=== PATIENT | female | born 1935 | race Caucasian/White ===

== ENCOUNTER 2021-04-30 10:05 | Inpatient (IN) | payer MEDICARE, SELFPAY ==
[2021-04-30] VITALS (33 sets, daily range): BP systolic 107–145; BP diastolic 81–97; PULSE 81–106; RESP 17–36; TEMP 35.7–37; O2SAT 82–100; BMI 22.6
--- NOTE | ~2021-04-30 | US_ITS ---
EXAMINATION: US thoracentesis DATE: 05/01/2021 13:18 INDICATION: pleural effusion TECHNIQUE: The procedure and its risks, benefits, and alternatives were discussed with January Gutierrez . Potential risks discussed included bleeding, infection, and pneumothorax. She understood the risks and agreed to proceed. The skin was prepped and draped in sterile fashion. 1% lidocaine was used for local anesthesia. Under ultrasound guidance, a 5 Fr catheter with trochar was advanced into the right pleural effusion. Fluid was aspirated. The catheter was removed, and a dressing was applied. There w ere no immediate complications. FINDINGS: Ultrasound images demonstrate a right pleural effusion and the catheter within the fluid. IMPRESSION: 1. Successful ultrasound-guided thoracentesis yielding 1000 mL of yellow fluid. Reviewed, dictated and finalized at location A. INAL INTELLIGENCE ANALYST IMPRESSION: 1. Successful ultrasound-guided thoracentesis yielding 1000 mL of yellow fluid .
--- NOTE | ~2021-04-30 | CT_ITS ---
EXAMINATION: CTA chest PE protocol EXAM DATE: 04/30/2021 18:11 INDICATION: increased need for o2 TECHNIQUE: Spiral CTA of the chest (pulmonary arteries) was performed with 100 cc Omnipaque 350 intr avenous contrast injection. Images were acquired during the pulmonary arterial phase. Coronal maxi mum intensity projection 3D-reconstructions were created by the technologist on dedicated workstation . Axial, coronal and sagittal reformatted images were reviewed. The dose-length product (DLP) for t his examination was 222.96 mGy-cm. The exposure was tailored according to patient size (auto mA exp osure control), and iterative reconstruction (ASIR) was used as additional dose reduction technique. There is no prior study for comparison. FINDINGS: The main, central pulmonary arteries are dilated which can indicate elevated pulmonary suresh rial pressure, pulmonary arterial hypertension. There are no pulmonary emboli in the 1st through 3r d order (central and interlobar) pulmonary arteries. Some loss of attenuation in the basilar segment al pulmonary from respiratory motion, these regions not confidently evaluated. No Intraluminal fillin g defects identified. Thoracic aorta is not yet enhanced. There is cardiomegaly, in particular left ventricular dilation. There is pulmonary vascular congestio n. Moderate-sized to large right, moderate left pleural effusions. There is emphysema with interlobul ar septal thickening, most likely some of which is edema. There is possibility of underlying intersti tial lung disease. IMPRESSION: 1. Limited segmental evaluation, but no pulmonary emboli are suspected. 2. Cardiomegaly. Pulmonary vascular congestion probably pulmonary edema. Pneumonia, chronic intersti tial lung disease not excludable. 3. Moderate to large right, moderate size left pleural effusions. Reviewed, dictated and finalized at location G. E STUD MANAGER IMPRESSION: 1. Limited segmental evaluation, but no pulmonary emboli are suspected. 2. Cardiomegaly. Pulmonary vascular congestion probably pulmonary edema. Pneum onia, chronic interstitial lung disease not excludable. 3. Moderate to large right, moderate size left pleural effusions.
--- NOTE | ~2021-04-30 | XR_ITS ---
EXAMINATION: [id number] DATE: 05/01/2021 13:28 INDICATION: Right pleural effusion status post thoracentesis. TECHNIQUE: A single frontal view of the chest was obtained. COMPARISON: Chest single view 04/30/2021, chest CT 04/30/2021 FINDINGS: There are airspace and interstitial opacities throughout the lungs bilaterally. There are s mall right and moderate-sized left pleural effusions. No pneumothorax. Cardiomegaly is noted. There i s a left chest pacer/defibrillator with leads in right ventricle and coronary sinus. IMPRESSION: 1. Small right and moderate-sized left pleural effusions with improvement on the right status post th oracentesis. 2. Stable diffuse lung disease, consistent with pulmonary edema versus pneumonia. 3. Cardiomegaly. Reviewed, dictated and finalized at location A. R MAKER DYER IMPRESSION: 1. Small right and moderate-sized left pleural effusions with improvement on th e right status post thoracentesis. 2. Stable diffuse lung disease, consistent with pulmonary edema versus pneumoni a. 3. Cardiomegaly.
--- NOTE | ~2021-04-30 | XR_ITS ---
EXAMINATION: XR chest 1V portable INDICATION: Weakness and shortness of breath TECHNIQUE: Portable AP chest at 1050 hours COMPARISON: None available FINDINGS: There are diffuse interstitial and airspace opacities throughout all lung zones, right grea ter than left. Small pleural effusions are suggested. There is no pneumothorax. Cardiomegaly is noted . A triple lead cardiac pacemaker of the left chest wall ends with leads in expected locations. IMPRESSION: 1. Diffuse interstitial and airspace opacities, consistent with pneumonia and/or pulmonary edema. 2. Small pleural effusions. 3. Cardiomegaly. Reviewed, dictated and finalized at location B. PRODUCTION DESIGNER IMPRESSION: 1. Diffuse interstitial and airspace opacities, consistent with pneumonia and/o r pulmonary edema. 2. Small pleural effusions. 3. Cardiomegaly.
--- NOTE | 2021-04-30 10:29 | ECG_ITS ---
Measurements Intervals [place] Rate: 93 P: 72 NC: 116 QRS: -64 QRSD: 190 T: 112 QT: 414 QTc: 515 Interpretive Statements ELECTRONIC VENTRICULAR PACEMAKER FUSION COMPLEX BASELINE ARTIFACT- I, II, III, AVR, AVL NO FURTHER INTERPRETATION IS POSSIBLE ATYPICAL ECG Electronically Signed On 04-30-2021 11:27:33 RECREATIONAL VEHICLE REPAIRER by Francis Tripp D.O.
[2021-04-30 10:59] LABS: Alanine Aminotransferase 25 U/L (4-35); Albumin Level 4.3 g/dL (3.5-5.1); Alkaline Phosphatase 62 U/L (38-126); Anion Gap 8 mmol/L (8-16); Aspartate Amino Transferase 34 U/L (14-36); Bilirubin,Total 0.9 mg/dL (0.2-1.3); Blood Urea Nitrogen 17 mg/dL (7-17); Calcium 9.8 mg/dL (8.4-10.2); Carbon Dioxide 25 mmol/L (22-30); Chloride 100 mmol/L (98-107); Estimated CRCL calculation 35 ml/min; Estimated Glomerular Filt Rate 59; Glucose 196 mg/dL (65-110); Potassium 4.2 mmol/L (3.4-5.0); Sodium 133 mmol/L (137-145)
[2021-04-30 11:01] LABS: Basophils Percent Auto 0.3 % (0.2-1.2); Eosinophils Percent Auto 0.2 % (0-4.4); Hematocrit 41.9 % (37.0-47.0); Hemoglobin 13.9 g/dL (12.0-15.0); Immature Granulocyte Absolute 0.03 K/mm3 (0.00-0.031); Immature Granulocyte Percent A 0.3 % (0-0.5); Lymphocytes Absolute Auto 0.94 K/mm3 (0.9-3.2); Lymphocytes Percent Auto 8.9 % (18.3-44.2); Mean Corpuscular HGB Conc 33.2 g/dl (32-36); Mean Corpuscular Volume 96.3 fl (80-100); Mean Platelet Volume 10.2 fl (7.4-10.4); Monocytes Absolute Auto 0.7 K/mm3 (0.1-0.6); Monocytes Percent Auto 6.2 % (2.6-8.5); Neutrophils Absolute Auto 8.9 K/mm3 (1.3-6.7); Neutrophils Percent Auto 84.1 % (45.5-73.1); Platelet Count Result 238 k/mm3 (150-375); Red Blood Count 4.35 M/mm3 (4.2-5.4); Red Cell Distribution Width 15.1 % (11.5-14.5); White Blood Count 10.5 K/mm3 (4.5-10.0)
--- NOTE | 2021-04-30 11:19 | PC.NURSE ---
Patient assisted to the bathroom. Patient unable to void in the bathroom patient taken back to room and patient voided in her pants in bed.
[2021-04-30 11:26] LABS: INR 1.2; Prothrombin Time 14.7 Seconds (11.1-14.7)
[2021-04-30 11:27] LABS: Lactic Acid Reflex 1.8 mmol/L (0.7-2.1)
[2021-04-30 11:30] LABS: CRP < 0.5 mg/dL (<1.0); Lactate Dehydrogenase 602 U/L (313-618)
--- NOTE | 2021-04-30 11:36 | ED.WEAKNESS ---
HPI - Weakness General Chief complaint: Weakness Stated complaint: weak/sob today Time Seen by Provider: 04/30/21 10:32 Source: patient Mode of arrival: wheelchair Limitations: no limitations History of Present Illness HPI Narrative: This is a 85 year old female that presents to the ER for generalized weakness today. Reports she tested positive for Covid on a home test on the of this month. She has had cough, congestion, chills. Reports today she also started to feel short of breath. Patient reports she saw her primary doctor on the who started her on an antibiotic and an albuterol inhaler. Denies fever, chest pain, or lower extremity edema. Related Data Allergies Allergy/AdvReac Type Severity Reaction Status Date / Time No Known Allergies Allergy Verified 04/30/21 11:04 Review of Systems Review of Systems: CONSTITUTIONAL: Reports chills, sweats. Denies fever ENT: Reports congestion, sore throat CARDIOVASCULAR: Denies chest pain, or edema. RESPIRATORY: Reports cough and dyspnea. All systems reviewed & are unremarkable except as noted in HPI and below PMFSH Past Medical History Medical History (Updated 04/30/21 @ 13:27 by Loly Harris PA-C) History of pacemaker Social History Social History (Updated 04/30/21 @ 11:38 by Loly Harris PA-C) Smoking status: Former smoker Exam Narrative: GENERAL: Well-appearing, well-nourished, and in no acute distress. HEAD: Normocephalic, atraumatic. EYES: EOMI. ENT: Nares clear, no rhinorrhea or epistaxis. Mucous membranes moist. Oropharynx without tonsillar hypertrophy exudate or other lesions. Bilateral TMs pearly jara non-bulging NECK: Supple. No adenopathy or masses. CHEST: No respiratory distress. Rales noted in the mid and lower lung zones bilaterally. No wheezes or rhonchi HEART: Regular rate and rhythm. No murmur heard. Normal peripheral pulses. EXTREMITIES: Normal range of motion. No edema. SKIN: Warm, dry, no rash. NEURO: No focal deficits. Alert and oriented x3. PSYCH: Normal mood and affect Course Consultations Consultation #1: Spoke with hospitalist about patient and workup who accepts admission Date: 04/30/21 Vital Signs Vital signs: Vital Signs Temperature 97.2 F L 04/30/21 10:12 Pulse Rate 106 H 04/30/21 10:12 Respiratory Rate 20 04/30/21 10:12 Blood Pressure 143/82 H 04/30/21 10:12 Pulse Oximetry 82 L 04/30/21 10:12 Temperature 97.2 F L 04/30/21 10:12 Pulse Rate 94 04/30/21 12:45 Respiratory Rate 18 04/30/21 12:45 Blood Pressure 136/86 04/30/21 12:45 Pulse Oximetry 93 04/30/21 12:45 MDM - Weakness MDM Narrative Medical decision making narrative: Patient presents to the ER for weakness. Recently tested positive for COVID on a home test. She is afebrile and nontoxic appearing. Noted to be hypoxic on arrival in the 80s. Placed on 2 L via nasal cannula with relief. CBC with mild leukocytosis to 10.5. Metabolic panel without concerning findings. Lactic acid is not elevated. UA without evidence of infection. Chest x-ray shows diffuse interstitial and airspace opacities consistent with likely Covid pneumonia. Shows small pleural effusions and cardiomegaly. Patient was updated on case findings. Will be admitted for further management of pneumonia with hypoxia. Spoke with hospitalist about patient and workup who accepts admission Patient's COVID PCR today did end up coming back negative. We are going to treat as though COVID pneumonia with hypoxia with typical symptoms and appearance on chest x-ray with home test positive. Remdesivir and Dexamethasone were started Lab Data Attestation: I reviewed the patient's lab results. Result diagrams: 04/30/21 10:37 04/30/21 10:37 Labs: Lab Results 04/30/21 04/30/21 04/30/21 Range/Units 10:37 10:37 10:59 WBC 10.5 H (4.5-10.0) K/mm3 RBC 4.35 (4.2-5.4) M/mm3 Hgb 13.9 (12.0-15.0) g/dL Hct 41.9 (37.0-47.0) % MCV
[2021-04-30 12:39] LABS: Add Urine Microscopic? YES; Appearance Urine Clear (Clear); Bacteria Urine Trace /hpf; Bilirubin Urine Negative (Negative); Blood Urine Negative (Negative); Color Urine Amber (Yellow); Glucose Urine UA Negative (Negative); Ketones Urine Trace mg/dL (Negative); Leukocyte Esterase Ur Negative LEU/UL (Negative); Mucus Urine Rare /lpf; Nitrate Urine Negative (Negative); Protein Urine 1+ mg/dL (Negative); RBC Urine 0-2 /hpf (0-2); Specific Grav Ur 1.023 (1.001-1.035); Squamous Epithelial Cell Urine Occasional /hpf (Few); Urobilinogen Urine Negative mg/dL (<2.0); WBC Urine 0-3 /hpf
[2021-04-30 13:00] LABS: SARS-CoV-2 RNA PCR Negative
--- NOTE | 2021-04-30 13:35 | PC.NURSE ---
Callled lab and spoke to Lori to add on BNP
[2021-04-30 13:55] LABS: NT Pro B Type Natriuretic Pept 8210 pg/mL (5-100)
[2021-04-30] MEDS: REMDESIVIR 200 MG/NS 250 ML 200 MG/250 ML BAG 250 MG IVPB (14:03)
--- NOTE | 2021-04-30 14:08 | PM.IMHP ---
H&P: HPI History of Present Illness Date/Time: 04/30/21 14:08 this is a 85-year-old female patient who came to the emergency room due to generalized weakness. The patient does not wear any oxygen at home. The patient reportedly had a positive COVID test at home with a 26 of this month. She has had a cough congestion and chills. Today she felt short of breath. She saw her primary care doctor on the and was started on antibiotics and an inhaler. At this point she does not have any fever chills or chest pain. Chest x-ray was read as diffuse interstitial and airspace opacities consistent with pneumonia and/or pulmonary edema. Small pleural effusion. Cardiomegaly. The patient was found to be COVID negative here. However she initially started out at 2 L per nasal cannula and soon became hypoxic and was increased up to 6 L per nasal cannula. Medical floor stated that they were going to put her on high-flow. The patient had been started on remdesivir and Decadron. A chest CTA was also performed 1. Limited segmental evaluation, but no pulmonary emboli are suspected. 2. Cardiomegaly. Pulmonary vascular congestion probably pulmonary edema. Pneumonia, chronic interstitial lung disease not excludable. 3. Moderate to large right, moderate size left pleural effusions. The patient is being admitted to inpatient services on the date of service is 04/30/2021. Chief Complaint: Shortness of breath Review of Systems Review of Systems: All systems reviewed & are unremarkable except as noted in HPI and below Constitutional: Constitutional: Reports as per HPI and Reports no additional constitutional complaints Eyes: Eyes: Reports as per HPI and Reports no additional eye complaints ENT: Reports system reviewed and no additional complaints, except as documented and Reports Normal hearing present Cardiovascular: Cardiovascular: Reports no additional cardiovascular complaints Respiratory: Respiratory: Reports no additional respiratory complaints and Reports no additional respiratory complaints Gastrointestinal: Gastrointestinal: Reports as per HPI and Reports no additional gastrointestinal complaints Musculoskeletal: Musculoskeletal: Reports no additional musculoskeletal complaints Integumentary/Breasts: Skin/Breast: Reports system reviewed and no additional complaints, except as docu and Reports as per HPI Neurologic: Reports system reviewed and no additional complaints, except as documented, Reports as per HPI and Reports Normal hearing present Psychiatric: Psychiatric: Reports no additional psychiatric complaints and Reports as per HPI Endocrine: Endocrine: Reports no additional endocrine complaints Hematologic/Lymphatic: Hematologic/Lymphatic: Reports no additional hematologic/lymphatic complaints Allergic/Immunologic: Allergic/Immunologic: Reports no additional allergic/immunologic complaints PMFSH Past Medical History Medical History (Updated 04/30/21 @ 14:10 by Madison Zuñiga NP) History of pacemaker HTN (hypertension), malignant Surgical History Surgical History (Updated 04/30/21 @ 14:10 by Madison Zuñiga NP) H/O: hysterectomy History of cardiac defibrillator placement Family History Family History Other No significant family history Social History Social History (Updated 04/30/21 @ 19:17 by Madison Zuñiga NP) Social History: The patient has 5 children. She is and she was a homemaker. She was a former smoker. No alcohol marijuana or illicit drugs. There is no mention of any durable power patent attorney for healthcare. Code status full code Smoking packs per day: 1 Smoking cigarettes per day: 20.0 Years smoked: 60 Smoking pack-years: 60.00 Smoking status: Former smoker Tobacco type: cigarettes Alcohol intake: never Substance use: never Spiritual care concerns: No Meds Home Medications and Allergies Home Medications
--- NOTE | 2021-04-30 14:50 | PC.NURSE ---
This patient, Barbie Aranda, was admitted to [facility] Surg Room 300-01. Patient/family oriented to hospital policies and general routines including ID bracelet, bed and alarms, visiting hours, pain management, procedures, bathroom and other care routines, personal items, smoking policy, room service/diet, and visiting hours. Report received from Saida DAWN. Information on how to activate the Rapid Response Team has been discussed. Patient/Family are encouraged to report perceived risks to care and to ask questions if they do not understand what they are told or what they should do.
[2021-04-30 17:10] LABS: Alveolar/Arterial O2 Gradient 226.1 mmHg; Base Excess ABG -5.1 mEq/l (+/-2.0); Carboxyhemoglobin 0.6 % THb (0-2.0); Fractional Inspired Oxygen 48 %; HCO3 ABG 20.4 mEq/l (22.0-26.0); Methemoglobin ABG 0.3 %THb (0-1.5); Oxygen Content ABG 18.6 %vol (16.0-22.0); Oxygen Saturation ABG 93.2 % (95.0-100.0); Oxyhemoglobin 91.1 % THb (90.0-100.0); PCO2 ABG 39.9 mmHg (35.0-45.0); PO2 ABG 71.1 mmHg (80.0-100.0); PO2 FiO2 Ratio Arterial Blood 1.48 %; Total Hemoglobin 14.5 g/dL (12.0-18.0); pH ABG 7.327 (7.350-7.450)
[2021-04-30 17:12] LABS: Device HIGH FLOW NASAL CANN; Modified Allen's Test Pass; Site Drawn LEFT RADIAL
[2021-04-30 19:46] LABS: Alveolar/Arterial O2 Gradient 268.2 mmHg; Base Excess ABG -3.6 mEq/l (+/-2.0); Fractional Inspired Oxygen 52 %; HCO3 ABG 22.4 mEq/l (22.0-26.0); Oxygen Content ABG 17.4 %vol (16.0-22.0); PCO2 ABG 43.8 mmHg (35.0-45.0); PO2 ABG 53.5 mmHg (80.0-100.0); PO2 FiO2 Ratio Arterial Blood 1.03 %; Total Hemoglobin 14.8 g/dL (12.0-18.0); pH ABG 7.326 (7.350-7.450)
[2021-04-30 19:48] LABS: Oxygen Saturation ABG 85.3 % (95.0-100.0)
[2021-04-30 19:49] LABS: Device HIGH FLOW NASAL CANN; Modified Allen's Test Unable to perform; Site Drawn RIGHT RADIAL
[2021-04-30] MEDS: FUROSEMIDE INJ 40 MG/4 ML VIAL IV PUSH (20:14)
[2021-04-30 20:58] LABS: Albumin Level 4.4 g/dL (3.5-5.1); Amylase 53 U/L (30-110); Bilirubin,Total 0.7 mg/dL (0.2-1.3); Cholesterol 191 mg/dL (0-200); Glucose 192 mg/dL (65-110); Lactate Dehydrogenase 616 U/L (313-618)
[2021-04-30 22:00] LABS: Digoxin < 0.4 ng/mL (0.8-2.0)
[2021-04-30 22:00] LABS: Alanine Aminotransferase 33 U/L (4-35); Aspartate Amino Transferase 43 U/L (14-36); Estimated CRCL calculation 46 ml/min; Estimated Glomerular Filt Rate > 60
--- NOTE | 2021-04-30 22:05 | PC.NURSE ---
patient transferred from [address] [place] [address]/surg for increased o2 needs at 2150. report was given by rob gallardo. patient placed on airvo.
[2021-04-30 22:21] LABS: Basophils Percent Auto 0.1 % (0.2-1.2); Hematocrit 42.5 % (37.0-47.0); Hemoglobin 14.1 g/dL (12.0-15.0); Immature Granulocyte Absolute 0.06 K/mm3 (0.00-0.031); Immature Granulocyte Percent A 0.4 % (0-0.5); Lymphocytes Absolute Auto 0.59 K/mm3 (0.9-3.2); Mean Corpuscular HGB Conc 33.2 g/dl (32-36); Mean Corpuscular Hemoglobin 32.1 pg (26-34); Mean Corpuscular Volume 96.8 fl (80-100); Mean Platelet Volume 10.7 fl (7.4-10.4); Monocytes Absolute Auto 0.4 K/mm3 (0.1-0.6); Neutrophils Absolute Auto 13.5 K/mm3 (1.3-6.7); Neutrophils Percent Auto 92.5 % (45.5-73.1); Platelet Count Result 236 k/mm3 (150-375); Red Blood Count 4.39 M/mm3 (4.2-5.4); Red Cell Distribution Width 15.2 % (11.5-14.5); White Blood Count 14.6 K/mm3 (4.5-10.0)
[2021-04-30] MEDS: OLANZapine 10 MG INJ VIAL 2.5 MG IM (23:47)
[2021-05-01] VITALS (19 sets, daily range): BP systolic 114–139; BP diastolic 51–82; PULSE 68–103; RESP 14–36; TEMP 36.6–37.2; O2SAT 92–100
--- NOTE | 2021-05-01 | ECHO_ITS ---
Patient Info Name: Barbie Aranda Age: 85 years : 1935 Gender: Female Ht: 69 in Wt: 153 lbs BSA: 1.84 m2 HR: 89 bpm BP: 136 / 82 mmHg Heart Rhythm: Sinus Rhythm Technical Quality: Fair Exam Date: 05/01/2021 10:47 AM Exam Location: [facility] Patient Status: Inpatient Admit Date: 04/30/2021 Staff Ordering Physician: Madison Zuñiga NP Electronics Installer: Mercy Barney RDCS Attending Provider: Cynthia Gillette PA-C Referring Physician: Yogesh HARTMAN; Exam Type: CA echo doppler color flow Study Info Indications - Moderate left pleural effusion Complete two-dimensional, color flow and Doppler transthoracic echocardiogram is performed. Summary 1. Complete two-dimensional, color flow and Doppler transthoracic echocardiogram is performed. 2. Severe left ventricular enlargement with normal wall thickness. Severe global hypokinesis present, EF 20-25% visually, 24% calculated. Diastolic function indeterminate. Abnormal septal motion probably due to pacemaker artifact. Spontaneous contrast is noted. 3. Left atrial chamber dimension is severely enlarged. 4. There is mild aortic valve regurgitation. 5. There is moderate to moderately severe mitral valve regurgitation. 6. There is mild tricuspid valve regurgitation. 7. Moderate pulmonary hypertension, estimated pulmonary arterial systolic pressure is 56 mmHg. 8. Dilated inferior vena cava with <50% collapse upon inspiration consistent with significantly elevated right atrial pressure, 20 mmHg. 9. Left pleural effusion. 10. Pacemaker noted right ventricle. 11. is noted. 12. The rhythm is probably sinus with ventricular pacing. Left Ventricle Left ventricular chamber dimension is severely enlarged. Left ventricular systolic function is severely reduced, estimated at 20-25%. There is no increased left ventricular wall thickness. Left ventricular septal wall motion is normal. The left ventricular diastolic function is indeterminate. Severe left ventricular enlargement with normal wall thickness. Severe global hypokinesis present, EF 20-25% visually, 24% calculated. Diastolic function indeterminate. Abnormal septal motion probably due to pacemaker artifact. Spontaneous contrast is noted. Right Ventricle Right ventricular chamber dimension is normal. Right ventricular systolic function is normal. Left Atria Left atrial chamber dimension is severely enlarged. Right Atria Right atrial chamber dimension is normal. Aortic Valve The aortic valve is trileaflet. There is no aortic valve sclerosis. There is no aortic valve stenosis. There is mild aortic valve regurgitation. Pulmonic Valve The pulmonic valve is normal. There is no pulmonic valve stenosis. There is trace pulmonic regurgitation. Mitral Valve The mitral valve has normal leaflets. There is no mitral valve stenosis. There is moderate to moderately severe mitral valve regurgitation. The mitral valve annulus is severely calcified. Tricuspid Valve The tricuspid valve leaflets are normal. There is no significant tricuspid valve stenosis. There is mild tricuspid valve regurgitation. Moderate pulmonary hypertension, estimated pulmonary arterial systolic pressure is 56 mmHg. Pericardium/Pleural The pericardium appears normal. There is no pericardial effusion. Inferior Vena Cava Dilated inferior vena cava with <50% collapse upon inspiration consistent with significantly elevated right atrial pressure, 20 mmHg. Aorta T
[2021-05-01 06:25] LABS: Basophils Percent Auto 0.1 % (0.2-1.2); Hematocrit 42.7 % (37.0-47.0); Hemoglobin 13.8 g/dL (12.0-15.0); Immature Granulocyte Absolute 0.07 K/mm3 (0.00-0.031); Immature Granulocyte Percent A 0.5 % (0-0.5); Lymphocytes Percent Auto 5.4 % (18.3-44.2); Mean Corpuscular HGB Conc 32.3 g/dl (32-36); Mean Corpuscular Hemoglobin 31.8 pg (26-34); Mean Corpuscular Volume 98.4 fl (80-100); Mean Platelet Volume 10.9 fl (7.4-10.4); Monocytes Percent Auto 6.9 % (2.6-8.5); Neutrophils Absolute Auto 12.8 K/mm3 (1.3-6.7); Neutrophils Percent Auto 87.1 % (45.5-73.1); Platelet Count Result 239 k/mm3 (150-375); Red Blood Count 4.34 M/mm3 (4.2-5.4); Red Cell Distribution Width 15.2 % (11.5-14.5); White Blood Count 14.7 K/mm3 (4.5-10.0)
[2021-05-01 06:37] LABS: Lactic Acid Reflex 3.3 mmol/L (0.7-2.1)
[2021-05-01 06:38] LABS: Alanine Aminotransferase 32 U/L (4-35); Albumin Level 4.3 g/dL (3.5-5.1); Alkaline Phosphatase 60 U/L (38-126); Anion Gap 9 mmol/L (8-16); Aspartate Amino Transferase 41 U/L (14-36); Bilirubin,Total 0.6 mg/dL (0.2-1.3); Blood Urea Nitrogen 22 mg/dL (7-17); Calcium 9.7 mg/dL (8.4-10.2); Carbon Dioxide 28 mmol/L (22-30); Chloride 97 mmol/L (98-107); Estimated CRCL calculation 41 ml/min; Estimated Glomerular Filt Rate 59; Glucose 182 mg/dL (65-110); INR 1.1; Lipase 70 U/L (23-300); Magnesium 2.2 mg/dL (1.6-2.3); Potassium 4.1 mmol/L (3.4-5.0); Sodium 134 mmol/L (137-145)
[2021-05-01 09:22] LABS: Reflex Lactic Acid Yes or No Add Lactic
--- NOTE | 2021-05-01 10:11 | PM.IMPN ---
Progress Note: A&P Assessment and Plan (1) Acute hypoxemic respiratory failure: Code(s): J96.01 - Acute respiratory failure with hypoxia Status: Acute Assessment and Plan: Presented with increased SOB ABG demonstrated hypoxemia O2 sats down to 86% Now requiring up to 50 L/min on Airvo with 15 L nonrebreather Likely secondary to COVID-19 pneumonia, pleural effusion, pulmonary edema. Plan as detailed below. No PE on CTA Evidence of pulmonary congestion. Echo is pending. Continue lasix 40 mg IV BID. Monitor intake and output Discussed case and plan of care with my supervising physician. Recommends consult to pulmonology. Spoke with Dr. Finnegan and discussed plan of care. Agrees with current plan. He will consult if BiPAP becomes required (patient requires 60 L/min at 100% FiO2 and O2 sats <90%). (2) Pneumonia due to COVID-19 virus: Code(s): U07.1 - COVID-19; J12.82 - Pneumonia due to coronavirus disease 2018 Status: Acute Assessment and Plan: Positive test on 04/26/21 although negative PCR here on04/30. CXR showed diffuse lung disease Despite negative PCR test, patient signs/symptoms clinically consistent with that of COVID-19, especially in light of rapidly escalating oxygen requirements. At this time, will continue treating as such and will repeat PCR. Will also check influenza Continue dexamethasone and remdesivir. Monitor LFTs Started on Baricitinib due to increased o2 requirements. Missed dose yesterday due to decreased alertness, not able to take medication. Discussed with pharmacy and due to GFR 59, proceed with 2 mg daily until GFR increases to 60. Also has been started on Ceftriaxone and Azithromycin given leukocytosis. Will proceed at this time. Supportive care. Monitor inflammatory markers. She has completed COVID vaccination including booster. Supplemental O2 as above. Continue Airvo Patient family/POA agreeable to intubation should this become required (3) Pleural effusion: Code(s): J90 - Pleural effusion, not elsewhere classified Status: Acute Assessment and Plan: Patient with moderate to large right, moderate left pleural effusion Patient's daughter reports that 2 weeks ago when patient was feeling well she had a routine CXR that was ?clear? Possibly related to pneumonia vs CHF Diagnostic and therapeutic thoracentesis scheduled for this afternoon. Will await lab studies including pleural protein, LDH, cell count, cultures, cytology (4) HTN (hypertension), malignant: Code(s): I10 - Essential (primary) hypertension Status: Chronic Assessment and Plan: Blood pressure is stable Continue carvedilol Continue IV Lasix b.i.d.. Monitor blood pressures with this (5) Lactic acidosis: Code(s): E87.2 - Acidosis Status: Acute Assessment and Plan: Lactic normal on presentation at 1.8 Repeated this morning, unclear why, and elevated at 3.3 Stat repeat lactic acid is pending Subjective Date/time seen: 05/01/21 10:11 Interval history: Date of service: 05/01/2021 Barbie Aranda is an 85-year-old female with a history of hypertension and cardiac pacemaker with recent positive COVID test on 04/26/2021 who is seen in follow-up for acute respiratory failure. I was called to the patient's room this morning as RN was concerned about patient removing her oxygen tubing and being agitated. On my encounter, the patient was resting comfortably. She is requiring Airvo at 50 L/min. She was asleep but arouses easily to verbal stimuli. She did not respond to any questions aside from telling me her name. I was not able to obtain any further history from the patient. I spoke with the patient's daughter/POA, January, via phone. Explain concerns about the patient removing oxygen. Discussed that her oxygen requirements have increased significantlyA and that she is at high risk for decline. Discussed code status and January reports t
[2021-05-01] MEDS: DIGOXIN TAB 125 MCG TABLET PO (10:37)
[2021-05-01] MEDS: BARICITINIB 2 MG TABLET PO (10:38)
[2021-05-01] MEDS: REMDESIVIR 100 MG/NS 250 ML 100 MG/250 ML BAG 250 MG IVPB (10:38)
[2021-05-01 11:05] LABS: Basophils Percent Auto 0.1 % (0.2-1.2); Hematocrit 40.9 % (37.0-47.0); Hemoglobin 13.9 g/dL (12.0-15.0); Immature Granulocyte Absolute 0.06 K/mm3 (0.00-0.031); Immature Granulocyte Percent A 0.4 % (0-0.5); Lymphocytes Absolute Auto 0.81 K/mm3 (0.9-3.2); Lymphocytes Percent Auto 5.7 % (18.3-44.2); Mean Corpuscular Volume 94.2 fl (80-100); Mean Platelet Volume 10.5 fl (7.4-10.4); Monocytes Absolute Auto 1.2 K/mm3 (0.1-0.6); Monocytes Percent Auto 8.7 % (2.6-8.5); Neutrophils Absolute Auto 12.2 K/mm3 (1.3-6.7); Neutrophils Percent Auto 85.1 % (45.5-73.1); Platelet Count Result 206 k/mm3 (150-375); Red Blood Count 4.34 M/mm3 (4.2-5.4); Red Cell Distribution Width 15.2 % (11.5-14.5); White Blood Count 14.3 K/mm3 (4.5-10.0)
[2021-05-01 11:15] LABS: Alanine Aminotransferase 32 U/L (4-35); Aspartate Amino Transferase 37 U/L (14-36); Estimated CRCL calculation 41 ml/min; Estimated Glomerular Filt Rate 59; Lactic Acid Reflex 1.5 mmol/L (0.7-2.1)
[2021-05-01 11:30] LABS: Albumin Level 4.2 g/dL (3.5-5.1); Lactate Dehydrogenase 576 U/L (313-618)
[2021-05-01] MEDS: FUROSEMIDE INJ 40 MG/4 ML VIAL IV PUSH ×2 (11:35→17:05)
[2021-05-01 12:00] LABS: Total Triiodothyronine (T3) 0.78 NG/ML (0.97-1.69)
[2021-05-01 13:07] LABS: Influenza Control Positive
[2021-05-01 14:26] LABS: Appearance Pleural Fluid Hazy (Clear); Color Pleural Fluid Yellow (Colorless); Pleural fluid source Pleural fluid
[2021-05-01 14:27] LABS: Lymphocytes Pleural Fluid 99 %; Monocytes Pleural Fluid 1 %
[2021-05-01] MEDS: ENOXAPARIN 40 MG/0.4 ML SYRINGE SUB-Q (17:05)
[2021-05-01 19:06] LABS: SARS-CoV-2 RNA PCR Negative
[2021-05-02] VITALS (22 sets, daily range): BP systolic 104–131; BP diastolic 59–76; PULSE 51–96; RESP 18–22; TEMP 36.4–37.1; O2SAT 97–100
[2021-05-02 04:59] LABS: Basophils Percent Auto 0.1 % (0.2-1.2); Hematocrit 37.1 % (37.0-47.0); Hemoglobin 12.8 g/dL (12.0-15.0); Immature Granulocyte Absolute 0.05 K/mm3 (0.00-0.031); Immature Granulocyte Percent A 0.4 % (0-0.5); Lymphocytes Absolute Auto 1.44 K/mm3 (0.9-3.2); Lymphocytes Percent Auto 11.7 % (18.3-44.2); Mean Corpuscular HGB Conc 34.5 g/dl (32-36); Mean Corpuscular Hemoglobin 31.8 pg (26-34); Mean Corpuscular Volume 92.1 fl (80-100); Mean Platelet Volume 10.5 fl (7.4-10.4); Monocytes Absolute Auto 1.5 K/mm3 (0.1-0.6); Monocytes Percent Auto 11.9 % (2.6-8.5); Neutrophils Absolute Auto 9.3 K/mm3 (1.3-6.7); Neutrophils Percent Auto 75.9 % (45.5-73.1); Platelet Count Result 199 k/mm3 (150-375); Red Blood Count 4.03 M/mm3 (4.2-5.4); Red Cell Distribution Width 15.1 % (11.5-14.5); White Blood Count 12.3 K/mm3 (4.5-10.0)
[2021-05-02 05:09] LABS: INR 1.3; Prothrombin Time 15.6 Seconds (11.1-14.7)
[2021-05-02 05:16] LABS: Alanine Aminotransferase 26 U/L (4-35); Albumin Level 3.5 g/dL (3.5-5.1); Alkaline Phosphatase 48 U/L (38-126); Anion Gap 1 mmol/L (8-16); Aspartate Amino Transferase 39 U/L (14-36); Bilirubin,Total 0.4 mg/dL (0.2-1.3); Blood Urea Nitrogen 23 mg/dL (7-17); CRP 1.6 mg/dL (<1.0); Calcium 8.2 mg/dL (8.4-10.2); Carbon Dioxide 36 mmol/L (22-30); Chloride 97 mmol/L (98-107); Estimated CRCL calculation 41 ml/min; Estimated Glomerular Filt Rate 59; Glucose 103 mg/dL (65-110); Lactate Dehydrogenase 513 U/L (313-618); Potassium 3.4 mmol/L (3.4-5.0); Sodium 134 mmol/L (137-145)
[2021-05-02] MEDS: LEVOTHYROXINE SODIUM 50 MCG TABLET PO (05:23)
[2021-05-02] MEDS: ENOXAPARIN 40 MG/0.4 ML SYRINGE SUB-Q (10:15)
[2021-05-02] MEDS: DIGOXIN TAB 125 MCG TABLET PO (10:18)
[2021-05-02] MEDS: FUROSEMIDE INJ 40 MG/4 ML VIAL IV PUSH ×2 (10:19→18:07)
[2021-05-02] MEDS: OSELTAMIVIR PHOSPHATE 30 MG CAPSULE PO ×2 (10:19→22:23)
--- NOTE | 2021-05-02 13:12 | P.PNIM_ITS ---
Progress Note: A&P Assessment and Plan (1) Acute hypoxemic respiratory failure: Code(s): J96.01 - Acute respiratory failure with hypoxia Status: Acute Assessment and Plan: Presented with increased SOB. ABG demonstrated hypoxemia and O2 sats down to 86% on presentation * Improved today on Airvo 35 L/min * Likely multifactorial related to acute CHF exacerbation, influenza, pleural effusion.Plan as detailed below. * No PE on CTA * Discussed case and plan of care with my supervising physician and merchandise supervisor, Dr. Finnegan. Pulmonology to consult if worsening/patient requires BiPAP. (2) Acute exacerbation of CHF (congestive heart failure): Code(s): I50.9 - Heart failure, unspecified Status: Acute Assessment and Plan: CT on presentation showed evidence of pulmonary edema and cardiomegaly. BNP 8000 * Echo reviewed which showed EF 20-25% with indeterminate diastolic function and elevated right atrial pressure * Continue Furosemide 40 mg IV BID * Total diuresis of 5 L and patient is symptomatically improved. * Proceed with cardiology consultation. Recommendations appreciated * Monitor intake and output. (3) Pneumonia: Qualifiers: Laterality: bilateral Lung location: lower lobe of lung Pneumonia type: due to unspecified organism Qualified Code(s): J18.9 - Pneumonia, unspec ified organism Code(s): J18.9 - Pneumonia, unspecified organism Status: Acute Assessment and Plan: CXR and CTA show diffuse opacities consistent with pneumonia. * Secondary to influenza which explains bilateral pneumonia * Continue ceftriaxone and azithromycin for CAP coverage * Discussed case with merchandise supervisor, Dr. Finnegan * Patient had positive home COVID test with negative PCR x2 * At this time will discontinue dexamethasone. Steroids to be avoided when monica ating for influenza. * Also will discontinue Baricitinib due to negative PCR * Continue Remdesivir to complete 5 doses. Patient without evidence of toxicity. LFTs appropriate. No issues with Remdesivr + Oseltamivir. Given her advanced age and increased O2 demand, will compete treatment with Remdesivir. (4) Influenza A: Code(s): J10.1 - Influenza due to other identified influenza virus with other respiratory manifestations Status: Acute Assessment and Plan: Positive influenza A on 05/01/21 * Continue tamiflu 30 mg BID (renal dosing) * Supportive care (5) Pleural effusion: Code(s): J90 - Pleural effusion, not elsewhere classified Status: Acute Assessment and Plan: Patient with moderate to large right, moderate left pleural effusion * Patient's daughter reports that 2 weeks ago when patient was feeling well she had a routine CXR that was ?clear? * Possibly related to pneumonia vs CHF * Underwent thoracentesis on 05/01 which yielded 1 L yellow fluid * Pleural fluid studies pending. Gram stain negative. Preliminary cultures negative. No malignant cells on pathology. Await additional tests (6) HTN (hypertension), malignant: Code(s): I10 - Essential (primary) hypertension Status: Chronic Assessment and Plan: Blood pressure is stable. Softer today with BP 104/59 * Continue carvedilol * Continue IV Lasix b.i.d. if blood pressure tolerates. * Monitor blood pressure trends closely (7) Lactic acidosis: Code(s): E87.2 - Acidosis Status: Acute Assessment and Plan: Lactic normal on presentation at 1.8 but was repeated with increase up to 3.3 * Etiology for this transient increase is unclear
--- NOTE | 2021-05-02 13:12 | PM.IMPN ---
Progress Note: A&P Assessment and Plan (1) Acute hypoxemic respiratory failure: Code(s): J96.01 - Acute respiratory failure with hypoxia Status: Acute Assessment and Plan: Presented with increased SOB. ABG demonstrated hypoxemia and O2 sats down to 86% on presentation Improved today on Airvo 35 L/min Likely multifactorial related to acute CHF exacerbation, influenza, pleural effusion.Plan as detailed below. No PE on CTA Discussed case and plan of care with my supervising physician and school transportation director, Dr. Finnegan. Pulmonology to consult if worsening/patient requires BiPAP. (2) Acute exacerbation of CHF (congestive heart failure): Code(s): I50.9 - Heart failure, unspecified Status: Acute Assessment and Plan: CT on presentation showed evidence of pulmonary edema and cardiomegaly. BNP 8000 Echo reviewed which showed EF 20-25% with indeterminate diastolic function and elevated right atrial pressure Continue Furosemide 40 mg IV BID Total diuresis of 5 L and patient is symptomatically improved. Proceed with cardiology consultation. Recommendations appreciated Monitor intake and output. (3) Pneumonia: Qualifiers: Laterality: bilateral Lung location: lower lobe of lung Pneumonia type: due to unspecified organism Qualified Code(s): J18.9 - Pneumonia, unspecified organism Code(s): J18.9 - Pneumonia, unspecified organism Status: Acute Assessment and Plan: CXR and CTA show diffuse opacities consistent with pneumonia. Secondary to influenza which explains bilateral pneumonia Continue ceftriaxone and azithromycin for CAP coverage Discussed case with school transportation director, Dr. Finnegan Patient had positive home COVID test with negative PCR x2 At this time will discontinue dexamethasone. Steroids to be avoided when treating for influenza. Also will discontinue Baricitinib due to negative PCR Continue Remdesivir to complete 5 doses. Patient without evidence of toxicity. LFTs appropriate. No issues with Remdesivr + Oseltamivir. Given her advanced age and increased O2 demand, will compete treatment with Remdesivir. (4) Influenza A: Code(s): J10.1 - Influenza due to other identified influenza virus with other respiratory manifestations Status: Acute Assessment and Plan: Positive influenza A on 05/01/21 Continue tamiflu 30 mg BID (renal dosing) Supportive care (5) Pleural effusion: Code(s): J90 - Pleural effusion, not elsewhere classified Status: Acute Assessment and Plan: Patient with moderate to large right, moderate left pleural effusion Patient's daughter reports that 2 weeks ago when patient was feeling well she had a routine CXR that was ?clear? Possibly related to pneumonia vs CHF Underwent thoracentesis on 05/01 which yielded 1 L yellow fluid Pleural fluid studies pending. Gram stain negative. Preliminary cultures negative. No malignant cells on pathology. Await additional tests (6) HTN (hypertension), malignant: Code(s): I10 - Essential (primary) hypertension Status: Chronic Assessment and Plan: Blood pressure is stable. Softer today with BP 104/59 Continue carvedilol Continue IV Lasix b.i.d. if blood pressure tolerates. Monitor blood pressure trends closely (7) Lactic acidosis: Code(s): E87.2 - Acidosis Status: Acute Assessment and Plan: Lactic normal on presentation at 1.8 but was repeated with increase up to 3.3 Etiology for this transient increase is unclear Repeat lactic again within normal limits at 1.5 Subjective Date/time seen: 05/02/21 13:12 Interval history: Date of service: 05/01/2021 Babrie Aranda is an 85-year-old female with a history of hypertension and cardiac pacemaker with recent positive COVID test on 04/26/2021 who is seen in follow-up for acute respiratory failure. She is feeling well today. She is sitting up and conversing without di
--- NOTE | 2021-05-02 14:59 | PM.CNCAR ---
Assessment and Plan Assessment and plan (1) Acute exacerbation of CHF (congestive heart failure): Code(s): I50.9 - Heart failure, unspecified <MAME Lopez - Last Filed: 05/02/21 15:48> Status: Acute <MAME Lopez - Last Filed: 05/02/21 15:48> Assessment and Plan: Known history of cardiomyopathy with an ejection fraction 28% with subsequent improvement of EF to 36% after implantation [employer]ANT-D device. Echocardiogram from yesterday revealed EF of 20-25%. Evidence of acute on chronic heart failure exacerbation on presentation with BNP elevated 8210, right pleural effusion. She underwent thoracentesis and is being diuresed with IV furosemide. This is provided improvement in her symptoms. Agree with 40 mg furosemide IV push b.i.d. for now. Will likely be able to transition her to oral diuretic tomorrow or the next day. Monitor kidney function and electrolytes with to BMP. On medical therapy for HFrEF with Coreg and diuretic. Can optimize GDMT with addition of Entresto 03/12 and spironolactone 25 mg daily. Accurate intake and output Daily weights <MAME Lopez - Last Filed: 05/02/21 15:48> (2) Influenza A: Code(s): J10.1 - Influenza due to other identified influenza virus with other respiratory manifestations <MAME Lopez - Last Filed: 05/02/21 15:48> Status: Acute <MAME Lopez - Last Filed: 05/02/21 15:48> Assessment and Plan: Currently requiring supplemental oxygen with high-flow oxygen at 80% FiO2 35 liters/minute. Supportive care. Management per primary service. <MAME Lopez - Last Filed: 05/02/21 15:48> (3) Pleural effusion: Code(s): J90 - Pleural effusion, not elsewhere classified <MAME Lopez - Last Filed: 05/02/21 15:48> Status: Acute <MAME Lopez - Last Filed: 05/02/21 15:48> Assessment and Plan: Significant improvement following thoracentesis yesterday. 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 Payne at [place]. According to most recent device interrogation in December of 2020 patient had some recurrent nonsustained ventricular tachycardia with no shocks delivered. She has a high percentage of BiV pacing. Remains on Coreg CR 40 mg daily. <MAME Lopez - Last Filed: 05/02/21 15:48> Additional Plan Patient seen and examined, chart reviewed, agree with Ashley Hall's assessment and plan. On exam she is a thin older very alert and pleasant female in no distress. Heart is regular with a 1/6 systolic murmur, diminished breath sounds in both bases, no respiratory distress, abdomen soft, no edema. Chest x-ray, labs, EKG and telemetry reviewed. Digoxin level OK. Long history of nonischemic cardiomyopathy followed by Dr. Syed, status post Bi V ICD, history of ventricular tachycardia. Patient recently found to have COVID at the end of March, and had progressive shortness of breath and WEISS, admitted for acute on chronic systolic and diastolic CHF, as well as influenza A. She has been compliant with the medications. She has had thoracentesis and IV diuretics and is feeling much better. She is on treatment for influenza A. Her ejection fraction has fallen a little to 20-25%. I agree with the addition of Entresto and spironolactone. Continue IV Lasix 40 mg IVP BID. I spend 22 minutes evaluating the pt and her chart. <Yomaira Rausch MD - Last Filed: 05/02/21 18:12> History of Present Illness History of Present Illness Consult date/time: 05/02/21 14:59 <SUNITA Lopez
[2021-05-02] MEDS: REMDESIVIR 100 MG/NS 250 ML 100 MG/250 ML BAG 250 MG IVPB (15:35)
[2021-05-02] MEDS: POTASSIUM CHLORIDE 20 MEQ TABLET.ER PO (18:07)
--- NOTE | 2021-05-02 18:50 | PC.NURSE ---
1849-Dr. Malloy called and informed that pt's daughter, January, called RN with medication (quinopril 10mg qd) that pt was taking at home that they forgot to inform staff during admission.
[2021-05-02] MEDS: SACUBITRIL/VALSARTAN 12-13 MG TABLET 1 TAB PO (22:23)
[2021-05-03] VITALS (7 sets, daily range): BP systolic 107–116; BP diastolic 58–80; PULSE 87–97; RESP 16–22; TEMP 36.2–36.6; O2SAT 93–100
[2021-05-03 05:25] LABS: Basophils Percent Auto 0.1 % (0.2-1.2); Eosinophils Percent Auto 0.2 % (0-4.4); Hematocrit 39.9 % (37.0-47.0); Hemoglobin 13.8 g/dL (12.0-15.0); Immature Granulocyte Absolute 0.05 K/mm3 (0.00-0.031); Immature Granulocyte Percent A 0.4 % (0-0.5); Lymphocytes Percent Auto 14.8 % (18.3-44.2); Mean Corpuscular HGB Conc 34.6 g/dl (32-36); Mean Corpuscular Hemoglobin 31.7 pg (26-34); Mean Corpuscular Volume 91.5 fl (80-100); Mean Platelet Volume 10.2 fl (7.4-10.4); Monocytes Absolute Auto 1.4 K/mm3 (0.1-0.6); Monocytes Percent Auto 11.1 % (2.6-8.5); Neutrophils Absolute Auto 9.5 K/mm3 (1.3-6.7); Neutrophils Percent Auto 73.4 % (45.5-73.1); Platelet Count Result 229 k/mm3 (150-375); Red Blood Count 4.36 M/mm3 (4.2-5.4); Red Cell Distribution Width 14.9 % (11.5-14.5); White Blood Count 12.9 K/mm3 (4.5-10.0)
[2021-05-03 05:34] LABS: INR 1.2; Prothrombin Time 15.3 Seconds (11.1-14.7)
[2021-05-03 05:41] LABS: Alanine Aminotransferase 32 U/L (4-35); Anion Gap 0 mmol/L (8-16); Aspartate Amino Transferase 39 U/L (14-36); Blood Urea Nitrogen 25 mg/dL (7-17); Carbon Dioxide 35 mmol/L (22-30); Chloride 99 mmol/L (98-107); Estimated CRCL calculation 46 ml/min; Estimated Glomerular Filt Rate > 60; Glucose 104 mg/dL (65-110); Magnesium 2.1 mg/dL (1.6-2.3); Potassium 3.5 mmol/L (3.4-5.0); Sodium 134 mmol/L (137-145)
[2021-05-03] MEDS: LEVOTHYROXINE SODIUM 50 MCG TABLET PO (06:34)
[2021-05-03] MEDS: POTASSIUM CHLORIDE 20 MEQ TABLET.ER PO ×2 (09:25→17:33)
[2021-05-03] MEDS: FUROSEMIDE INJ 40 MG/4 ML VIAL IV PUSH (09:26)
[2021-05-03] MEDS: DIGOXIN TAB 125 MCG TABLET PO (09:26)
[2021-05-03] MEDS: ENOXAPARIN 40 MG/0.4 ML SYRINGE SUB-Q (09:26)
[2021-05-03] MEDS: SACUBITRIL/VALSARTAN 12-13 MG TABLET 1 TAB PO ×2 (09:27→20:24)
[2021-05-03] MEDS: OSELTAMIVIR PHOSPHATE 30 MG CAPSULE PO ×2 (09:27→20:24)
[2021-05-03] MEDS: SPIRONOLACTONE 25 MG TABLET PO (09:27)
[2021-05-03] MEDS: REMDESIVIR 100 MG/NS 250 ML 100 MG/250 ML BAG 250 MG IVPB (10:25)
--- NOTE | 2021-05-03 10:31 | PM.PNCARD ---
Progress Note: A&P Assessment and Plan (1) Acute exacerbation of CHF (congestive heart failure): Code(s): I50.9 - Heart failure, unspecified Status: Acute Assessment and Plan: Known history of cardiomyopathy with an ejection fraction 28% with subsequent improvement of EF to 36% after implantation [employer]TER-D device. Echocardiogram from yesterday revealed EF of 20-25%. Evidence of acute on chronic heart failure exacerbation on presentation with BNP elevated 8210, right pleural effusion. She underwent thoracentesis and is being diuresed with IV furosemide. This is provided improvement in her symptoms. Will shift to oral furosemide today 40mg p.o. b.i.d. Monitor kidney function and electrolytes with daily BMP. On medical therapy for HFrEF with Coreg, Entresto, spironolactone, furosemide. BP and kidney function stable thus far. Accurate intake and output Daily weights OK to transfer to medical floor today Will need outpatient follow up with her product marketing executive, Dr. Payne Cardiology will sign off, please do not hesitate to contact us if we can be of further assistance in the care of this patient (2) Influenza A: Code(s): J10.1 - Influenza due to other identified influenza virus with other respiratory manifestations Status: Acute Assessment and Plan: Remains on oxygen but her requirements have significantly decreased. Improving in this regard. Supportive care. Management per primary service. 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 Payne at [place]. According to most recent device interrogation in December of 2020 patient had some recurrent nonsustained ventricular tachycardia with no shocks delivered. She has a high percentage of BiV pacing. Remains on Coreg CR 40 mg daily. Subjective Date/time seen: 05/03/21 10:31 Cardiology follow up for CHF Continues to feel better today. Her oxygen requirements are significantly decreased, she is breathing comfortably on 2L per nasal cannula. She does not have any cardiovascular complaints of any kind. Review of Systems Review of Systems: All systems reviewed & are unremarkable except as noted in HPI and below Constitutional: Constitutional: Denies excessive sweating, Denies fatigue and Denies weakness Eyes: Eyes: Denies change in vision ENT: Denies Normal hearing present and Reports nasal congestion Cardiovascular: Cardiovascular: Denies chest pain, Denies diaphoresis, Denies pedal edema, Denies leg edema, Denies lightheadedness, Reports palpitations, Reports dyspnea and Denies dyspnea on exertion Respiratory: Respiratory: Reports cough, Reports dyspnea and Denies dyspnea on exertion Gastrointestinal: Gastrointestinal: Denies constipation and Denies diarrhea Genitourinary: Genitourinary: Denies hematuria, Denies dysuria and Denies urinary hesitancy Musculoskeletal: Musculoskeletal: Denies abnormal gait, Denies arthralgias and Denies joint swelling Integumentary/Breasts: Skin/Breast: Reports dry skin and Denies unusual bruising Neurologic: Denies Normal hearing present, Denies Abnormal speech present, Denies abnormal gait, Denies confusion and Denies weakness Psychiatric: Psychiatric: Denies anxiety, Denies confusion and Denies depression Endocrine: Endocrine: Denies excessive sweating, Denies fatigue, Denies flushing and Reports palpitations Hematologic/Lymphatic: Hematologic/Lymphatic: Denies easy bleeding and Denies easy bruising Allergic/Immunologic: Allergic/Immunologic: Denies GI upset with certain foods Exam Const: General: comfortable and no acute distress; No confusion Kg
--- NOTE | 2021-05-03 14:25 | P.PNIM_ITS ---
Progress Note: A&P Assessment and Plan (1) Acute hypoxemic respiratory failure: Code(s): J96.01 - Acute respiratory failure with hypoxia Status: Acute Assessment and Plan: Presented with increased SOB. ABG demonstrated hypoxemia and O2 sats down to 86% on presentation * Significantly improved. Initially required up to 50 L on Airvo, now on 3 L per nasal cannula * Likely multifactorial related to acute CHF exacerbation, influenza, pleural effusion.Plan as detailed below. * No PE on CTA * Discussed case and plan of care with my supervising physician and surgical training specialist, Dr. Finnegan. Pulmonology to consult if worsening/patient requires BiPAP. (2) Acute exacerbation of CHF (congestive heart failure): Code(s): I50.9 - Heart failure, unspecified Status: Acute Assessment and Plan: CT on presentation showed evidence of pulmonary edema and cardiomegaly. BNP 8000 * Echo reviewed which showed EF 20-25% with indeterminate diastolic function and elevated right atrial pressure * Continue Furosemide 40 mg p.o. BID * She has had symptomatic improvement with diuresis. Over 6 L output * Appreciate cardiology consultation * Started on spironolactone and Entresto * Informed by care coordination patient's concern regarding cost of Entresto. Relayed information to Cardiology. * Monitor intake and output. (3) Pneumonia: Qualifiers: Laterality: bilateral Lung location: lower lobe of lung Pneumonia type: due to unspecified organism Qualified Code(s): J18.9 - Pneumonia, unspecified organism Code(s): J18.9 - Pneumonia, unspecified organism Status: Acute Assessment and Plan: CXR and CTA show diffuse opacities consistent with pneumonia. * Secondary to influenza which explains bilateral pneumonia * Continue ceftriaxone and azithromycin for CAP coverage * Discussed case with surgical training specialist, Dr. Finnegan * Patient had positive home COVID test with negative PCR x2. Dexamethasone and baricitinib discontinued on 05/02/21 * Continue Remdesivir to complete 5 doses. Patient without evidence of toxicity. LFTs appropriate. No issues with Remdesivr + Oseltamivir. Given her advanced age and increased O2 demand, will compete treatment with Remdesivir. (4) Influenza A: Code(s): J10.1 - Influenza due to other identified influenza virus with other respiratory manifestations Status: Acute Assessment and Plan: Positive influenza A on 05/01/21 * Continue tamiflu 30 mg BID (renal dosing) * Supportive care (5) Pleural effusion: Code(s): J90 - Pleural effusion, not elsewhere classified Status: Acute Assessment and Plan: Patient with moderate to large right, moderate left pleural effusion * Patient's daughter reports that 2 weeks ago when patient was feeling well she had a routine CXR that was ?clear? * Possibly related to pneumonia vs CHF * Underwent thoracentesis on 05/01 which yielded 1 L yellow fluid * Pleural fluid studies pending. Gram stain negative. Preliminary cultures negative. No malignant cells on pathology. Await additional tests (6) HTN (hypertension), malignant: Code(s): I10 - Essential (primary) hypertension Status: Chronic Assessment and Plan: Blood pressure is stable. Last BP 116/80 * Continue carvedilol * Continue p.o. Lasix * Monitor blood pressure trends closely (7) Lactic acidosis: Code(s): E87.2 - Acidosis Status: Acute Assessment and Plan: Resolved. Lactic normal on presentation at 1.8 but was repeated with i
--- NOTE | 2021-05-03 14:25 | PM.IMPN ---
Progress Note: A&P Assessment and Plan (1) Acute hypoxemic respiratory failure: Code(s): J96.01 - Acute respiratory failure with hypoxia Status: Acute Assessment and Plan: Presented with increased SOB. ABG demonstrated hypoxemia and O2 sats down to 86% on presentation Significantly improved. Initially required up to 50 L on Airvo, now on 3 L per nasal cannula Likely multifactorial related to acute CHF exacerbation, influenza, pleural effusion.Plan as detailed below. No PE on CTA Discussed case and plan of care with my supervising physician and foreign student adviser, Dr. Finnegan. Pulmonology to consult if worsening/patient requires BiPAP. (2) Acute exacerbation of CHF (congestive heart failure): Code(s): I50.9 - Heart failure, unspecified Status: Acute Assessment and Plan: CT on presentation showed evidence of pulmonary edema and cardiomegaly. BNP 8000 Echo reviewed which showed EF 20-25% with indeterminate diastolic function and elevated right atrial pressure Continue Furosemide 40 mg p.o. BID She has had symptomatic improvement with diuresis. Over 6 L output Appreciate cardiology consultation Started on spironolactone and Entresto Informed by care coordination patient's concern regarding cost of Entresto. Relayed information to Cardiology. Monitor intake and output. (3) Pneumonia: Qualifiers: Laterality: bilateral Lung location: lower lobe of lung Pneumonia type: due to unspecified organism Qualified Code(s): J18.9 - Pneumonia, unspecified organism Code(s): J18.9 - Pneumonia, unspecified organism Status: Acute Assessment and Plan: CXR and CTA show diffuse opacities consistent with pneumonia. Secondary to influenza which explains bilateral pneumonia Continue ceftriaxone and azithromycin for CAP coverage Discussed case with foreign student adviser, Dr. Finnegan Patient had positive home COVID test with negative PCR x2. Dexamethasone and baricitinib discontinued on 05/02/21 Continue Remdesivir to complete 5 doses. Patient without evidence of toxicity. LFTs appropriate. No issues with Remdesivr + Oseltamivir. Given her advanced age and increased O2 demand, will compete treatment with Remdesivir. (4) Influenza A: Code(s): J10.1 - Influenza due to other identified influenza virus with other respiratory manifestations Status: Acute Assessment and Plan: Positive influenza A on 05/01/21 Continue tamiflu 30 mg BID (renal dosing) Supportive care (5) Pleural effusion: Code(s): J90 - Pleural effusion, not elsewhere classified Status: Acute Assessment and Plan: Patient with moderate to large right, moderate left pleural effusion Patient's daughter reports that 2 weeks ago when patient was feeling well she had a routine CXR that was ?clear? Possibly related to pneumonia vs CHF Underwent thoracentesis on 05/01 which yielded 1 L yellow fluid Pleural fluid studies pending. Gram stain negative. Preliminary cultures negative. No malignant cells on pathology. Await additional tests (6) HTN (hypertension), malignant: Code(s): I10 - Essential (primary) hypertension Status: Chronic Assessment and Plan: Blood pressure is stable. Last BP 116/80 Continue carvedilol Continue p.o. Lasix Monitor blood pressure trends closely (7) Lactic acidosis: Code(s): E87.2 - Acidosis Status: Acute Assessment and Plan: Resolved. Lactic normal on presentation at 1.8 but was repeated with increase up to 3.3 Etiology for this transient increase is unclear Repeat lactic again within normal limits at 1.5 Additional Plan Patient is hemodynamically stable and will downgrade to medical floor Subjective Date/time seen: 05/03/21 14:25 Interval history: Date of service: 05/03/2021 Barbie Aranda is an 85-year-old female with a history of hypertension and cardiac pacemaker with recent positive COVID te
[2021-05-03] MEDS: FUROSEMIDE 40 MG TABLET PO (17:33)
--- NOTE | 2021-05-03 17:48 | PC.NURSE ---
This patient, Barbie Aarnda, was transferred to [facility] on 05/03/21 at 1745. Personal belongings sent with patient. Report given to Maria Teresa. Appropriate documentation sent with patient.
--- NOTE | 2021-05-03 18:17 | PC.NURSE ---
This patient, Barbie Aranda, was received from IMU on 05/03/21 at 1740. Report received from LÓPEZ Padilla. Patient/family oriented to unit policies and routines
[2021-05-03 20:52] LABS: Glucose Pleural Fluid 153 mg/dL; LDH Pleural Fluid 75 U/L; Total Protein Pleural Fluid <3.0 g/dL
[2021-05-04] VITALS (7 sets, daily range): BP systolic 80–118; BP diastolic 38–65; PULSE 70–87; RESP 14–16; TEMP 36.2–37.1; O2SAT 97–100
[2021-05-04] MEDS: LEVOTHYROXINE SODIUM 50 MCG TABLET PO (05:38)
[2021-05-04 07:42] LABS: Basophils Percent Auto 0.2 % (0.2-1.2); Eosinophils Absolute Auto 0.2 K/mm3 (0-0.3); Eosinophils Percent Auto 2.1 % (0-4.4); Hematocrit 45.6 % (37.0-47.0); Hemoglobin 14.9 g/dL (12.0-15.0); Immature Granulocyte Absolute 0.04 K/mm3 (0.00-0.031); Immature Granulocyte Percent A 0.4 % (0-0.5); Lymphocytes Absolute Auto 2.63 K/mm3 (0.9-3.2); Lymphocytes Percent Auto 23.8 % (18.3-44.2); Mean Corpuscular HGB Conc 32.7 g/dl (32-36); Mean Corpuscular Hemoglobin 31.5 pg (26-34); Mean Corpuscular Volume 96.4 fl (80-100); Mean Platelet Volume 10.1 fl (7.4-10.4); Monocytes Absolute Auto 1.2 K/mm3 (0.1-0.6); Monocytes Percent Auto 10.7 % (2.6-8.5); Neutrophils Percent Auto 62.8 % (45.5-73.1); Platelet Count Result 241 k/mm3 (150-375); Red Blood Count 4.73 M/mm3 (4.2-5.4); Red Cell Distribution Width 15.3 % (11.5-14.5); White Blood Count 11.1 K/mm3 (4.5-10.0)
[2021-05-04 07:50] LABS: Alanine Aminotransferase 30 U/L (4-35); Albumin Level 3.5 g/dL (3.5-5.1); Alkaline Phosphatase 52 U/L (38-126); Anion Gap 2 mmol/L (8-16); Aspartate Amino Transferase 32 U/L (14-36); Bilirubin,Total 0.5 mg/dL (0.2-1.3); Blood Urea Nitrogen 26 mg/dL (7-17); Calcium 8.4 mg/dL (8.4-10.2); Carbon Dioxide 35 mmol/L (22-30); Chloride 99 mmol/L (98-107); Estimated CRCL calculation 37 ml/min; Estimated Glomerular Filt Rate 53; Glucose 100 mg/dL (65-110); Potassium 4.1 mmol/L (3.4-5.0); Sodium 136 mmol/L (137-145)
[2021-05-04 09:00] LABS: INR 1.3; Prothrombin Time 15.6 Seconds (11.1-14.7)
[2021-05-04] MEDS: OSELTAMIVIR PHOSPHATE 30 MG CAPSULE PO ×2 (09:03→20:38)
[2021-05-04] MEDS: ENOXAPARIN 40 MG/0.4 ML SYRINGE SUB-Q (09:03)
[2021-05-04] MEDS: SACUBITRIL/VALSARTAN 12-13 MG TABLET 1 TAB PO (09:04)
[2021-05-04] MEDS: DIGOXIN TAB 125 MCG TABLET PO (09:04)
[2021-05-04] MEDS: SPIRONOLACTONE 25 MG TABLET PO (09:04)
[2021-05-04] MEDS: POTASSIUM CHLORIDE 20 MEQ TABLET.ER PO ×2 (09:04→16:42)
--- NOTE | 2021-05-04 09:52 | P.PNIM_ITS ---
Progress Note: A&P Assessment and Plan (1) Acute hypoxemic respiratory failure: Code(s): J96.01 - Acute respiratory failure with hypoxia Status: Acute Assessment and Plan: Presented with increased SOB. ABG demonstrated hypoxemia and O2 sats down to 86% on presentation * Significantly improved. Initially required up to 50 L on Airvo, now on 2L per nasal cannula * Likely multifactorial related to acute CHF exacerbation, influenza, pleural effusion.Plan as detailed below. * No PE on CTA * Discussed case and plan of care with my supervising physician and pretzel twisting machine operator, Dr. Finnegan. Pulmonology to consult if worsening/patient requires BiPAP. (2) Acute exacerbation of CHF (congestive heart failure): Code(s): I50.9 - Heart failure, unspecified Status: Acute Assessment and Plan: CT on presentation showed evidence of pulmonary edema and cardiomegaly. BNP 8000 * Echo reviewed which showed EF 20-25% with indeterminate diastolic function and elevated right atrial pressure * Continue Furosemide 40 mg p.o. BID * She has had symptomatic improvement with diuresis. >6 L output * Appreciate cardiology consultation * Started on spironolactone and Entresto. * Monitor intake and output. (3) Pneumonia: Qualifiers: Laterality: bilateral Lung location: lower lobe of lung Pneumonia type: due to unspecified organism Qualified Code(s): J18.9 - Pneumonia, unspecified organism Code(s): J18.9 - Pneumonia, unspecified organism Status: Acute Assessment and Plan: CXR and CTA show diffuse opacities consistent with pneumonia. * Secondary to influenza which explains bilateral pneumonia * Continue ceftriaxone and azithromycin for CAP coverage * Discussed case with pretzel twisting machine operator, Dr. Finnegan * Patient had positive home COVID test with negative PCR x2. Dexamethasone and baricitinib discontinued on 05/02/21 * Remdesivir continued to complete 5 doses. Patient without evidence of toxicity. LFTs appropriate. No issues with Remdesivr + Oseltamivir. Given her advanced age and increased O2 demand, will compete treatment with Remdesivir. Final dose today. (4) Influenza A: Code(s): J10.1 - Influenza due to other identified influenza virus with other respiratory manifestations Status: Acute Assessment and Plan: Positive influenza A on 05/01/21 * Continue tamiflu 30 mg BID (renal dosing) * Supportive care (5) Pleural effusion: Code(s): J90 - Pleural effusion, not elsewhere classified Status: Acute Assessment and Plan: Patient with moderate to large right, moderate left pleural effusion * Patient's daughter reports that 2 weeks ago when patient was feeling well she had a routine CXR that was ?clear? * Underwent thoracentesis on 05/01 which yielded 1 L yellow fluid * Gram stain negative. Preliminary cultures negative. No malignant cells on pathology * Pleural fluid studies consistent with transudative effusion, likely secondary to CHF (6) HTN (hypertension), malignant: Code(s): I10 - Essential (primary) hypertension Status: Chronic Assessment and Plan: Blood pressure is stable. Last BP 107/58 * Continue carvedilol * Continue p.o. Lasix * Monitor blood pressure trends closely (7) Lactic acidosis: Code(s): E87.2 - Acidosis Status: Acute Assessment and Plan: Resolved. Lactic normal on presentation at 1.8 but was repeated with increase up to 3.3 * Etiology for this transient increase is unclear * Repeat lactic again
--- NOTE | 2021-05-04 09:52 | PM.IMPN ---
Progress Note: A&P Assessment and Plan (1) Acute hypoxemic respiratory failure: Code(s): J96.01 - Acute respiratory failure with hypoxia Status: Acute Assessment and Plan: Presented with increased SOB. ABG demonstrated hypoxemia and O2 sats down to 86% on presentation Significantly improved. Initially required up to 50 L on Airvo, now on 2L per nasal cannula Likely multifactorial related to acute CHF exacerbation, influenza, pleural effusion.Plan as detailed below. No PE on CTA Discussed case and plan of care with my supervising physician and wheel buffer, Dr. Finnegan. Pulmonology to consult if worsening/patient requires BiPAP. (2) Acute exacerbation of CHF (congestive heart failure): Code(s): I50.9 - Heart failure, unspecified Status: Acute Assessment and Plan: CT on presentation showed evidence of pulmonary edema and cardiomegaly. BNP 8000 Echo reviewed which showed EF 20-25% with indeterminate diastolic function and elevated right atrial pressure Continue Furosemide 40 mg p.o. BID She has had symptomatic improvement with diuresis. >6 L output Appreciate cardiology consultation Started on spironolactone and Entresto. Monitor intake and output. (3) Pneumonia: Qualifiers: Laterality: bilateral Lung location: lower lobe of lung Pneumonia type: due to unspecified organism Qualified Code(s): J18.9 - Pneumonia, unspecified organism Code(s): J18.9 - Pneumonia, unspecified organism Status: Acute Assessment and Plan: CXR and CTA show diffuse opacities consistent with pneumonia. Secondary to influenza which explains bilateral pneumonia Continue ceftriaxone and azithromycin for CAP coverage Discussed case with wheel buffer, Dr. Finnegan Patient had positive home COVID test with negative PCR x2. Dexamethasone and baricitinib discontinued on 05/02/21 Remdesivir continued to complete 5 doses. Patient without evidence of toxicity. LFTs appropriate. No issues with Remdesivr + Oseltamivir. Given her advanced age and increased O2 demand, will compete treatment with Remdesivir. Final dose today. (4) Influenza A: Code(s): J10.1 - Influenza due to other identified influenza virus with other respiratory manifestations Status: Acute Assessment and Plan: Positive influenza A on 05/01/21 Continue tamiflu 30 mg BID (renal dosing) Supportive care (5) Pleural effusion: Code(s): J90 - Pleural effusion, not elsewhere classified Status: Acute Assessment and Plan: Patient with moderate to large right, moderate left pleural effusion Patient's daughter reports that 2 weeks ago when patient was feeling well she had a routine CXR that was ?clear? Underwent thoracentesis on 05/01 which yielded 1 L yellow fluid Gram stain negative. Preliminary cultures negative. No malignant cells on pathology Pleural fluid studies consistent with transudative effusion, likely secondary to CHF (6) HTN (hypertension), malignant: Code(s): I10 - Essential (primary) hypertension Status: Chronic Assessment and Plan: Blood pressure is stable. Last BP 107/58 Continue carvedilol Continue p.o. Lasix Monitor blood pressure trends closely (7) Lactic acidosis: Code(s): E87.2 - Acidosis Status: Acute Assessment and Plan: Resolved. Lactic normal on presentation at 1.8 but was repeated with increase up to 3.3 Etiology for this transient increase is unclear Repeat lactic again within normal limits at 1.5 Subjective Date/time seen: 05/04/21 09:52 Interval history: Date of service: 05/04/2021 Barbie Aranda is an 85-year-old female with a history of hypertension and cardiac pacemaker who is seen in follow-up for acute respiratory failure. She feels much improved today. She denies shortness of breath. No longer endorsing cough. No abdominal pain, nausea, or vomiting. She had a good breakfast this
--- NOTE | 2021-05-04 10:18 | PCCPR ---
EF 20-25% but not sure if she will be physically able to to rehab
[2021-05-04] MEDS: REMDESIVIR 100 MG/NS 250 ML 100 MG/250 ML BAG 250 MG IVPB (11:06)
[2021-05-04 11:43] LABS: Albumin Pleural Fluid 1.2 g/dL
[2021-05-04] MEDS: FUROSEMIDE 40 MG TABLET PO (14:10)
[2021-05-04] MEDS: SODIUM CHLORIDE 0.9% IV 250 ML 100 ML IV CONT (14:25)
--- NOTE | 2021-05-04 14:38 | PCPTNOTE ---
The patient treatment was not able to be completed this afternoon due to low BP. RN requests to hold PT this afternoon due to BP 80/38 in supine. Will plan to continue treatment per plan of care.
[2021-05-05] VITALS (8 sets, daily range): BP systolic 107–125; BP diastolic 49–93; PULSE 64–110; RESP 16–18; TEMP 36.6–37; O2SAT 93–100
[2021-05-05] MEDS: LEVOTHYROXINE SODIUM 50 MCG TABLET PO (05:48)
[2021-05-05 06:28] LABS: Basophils Percent Auto 0.1 % (0.2-1.2); Eosinophils Absolute Auto 0.2 K/mm3 (0-0.3); Eosinophils Percent Auto 2.5 % (0-4.4); Hematocrit 44.3 % (37.0-47.0); Hemoglobin 14.7 g/dL (12.0-15.0); Immature Granulocyte Absolute 0.04 K/mm3 (0.00-0.031); Immature Granulocyte Percent A 0.4 % (0-0.5); Lymphocytes Absolute Auto 2.25 K/mm3 (0.9-3.2); Lymphocytes Percent Auto 23.3 % (18.3-44.2); Mean Corpuscular HGB Conc 33.2 g/dl (32-36); Mean Corpuscular Hemoglobin 31.8 pg (26-34); Mean Corpuscular Volume 95.9 fl (80-100); Mean Platelet Volume 10.2 fl (7.4-10.4); Monocytes Absolute Auto 1.1 K/mm3 (0.1-0.6); Neutrophils Absolute Auto 6.1 K/mm3 (1.3-6.7); Neutrophils Percent Auto 62.7 % (45.5-73.1); Platelet Count Result 210 k/mm3 (150-375); Red Blood Count 4.62 M/mm3 (4.2-5.4); Red Cell Distribution Width 15.1 % (11.5-14.5); White Blood Count 9.7 K/mm3 (4.5-10.0)
[2021-05-05 06:37] LABS: Alanine Aminotransferase 28 U/L (4-35); Albumin Level 3.5 g/dL (3.5-5.1); Alkaline Phosphatase 52 U/L (38-126); Anion Gap 0 mmol/L (8-16); Aspartate Amino Transferase 31 U/L (14-36); Bilirubin,Total 0.7 mg/dL (0.2-1.3); Blood Urea Nitrogen 27 mg/dL (7-17); Calcium 8.5 mg/dL (8.4-10.2); Carbon Dioxide 32 mmol/L (22-30); Chloride 101 mmol/L (98-107); Estimated CRCL calculation 43 ml/min; Estimated Glomerular Filt Rate > 60; Glucose 97 mg/dL (65-110); Potassium 4.8 mmol/L (3.4-5.0); Sodium 133 mmol/L (137-145)
[2021-05-05] MEDS: OSELTAMIVIR PHOSPHATE 30 MG CAPSULE PO ×2 (08:44→20:20)
[2021-05-05] MEDS: ENOXAPARIN 40 MG/0.4 ML SYRINGE SUB-Q (08:44)
[2021-05-05] MEDS: POTASSIUM CHLORIDE 20 MEQ TABLET.ER PO ×2 (08:44→17:47)
[2021-05-05] MEDS: FUROSEMIDE 40 MG TABLET PO ×2 (08:46→17:47)
[2021-05-05] MEDS: DIGOXIN TAB 125 MCG TABLET PO (08:46)
--- NOTE | 2021-05-05 12:46 | P.PNIM_ITS ---
Progress Note: A&P Assessment and Plan (1) Acute hypoxemic respiratory failure: Code(s): J96.01 - Acute respiratory failure with hypoxia Status: Acute Assessment and Plan: Presented with increased SOB. ABG demonstrated hypoxemia and O2 sats down to 86% on presentation * Significantly improved. Initially required up to 50 L on Airvo, now on 2L per nasal cannula * Likely multifactorial related to acute CHF exacerbation, influenza, pleural effusion.Plan as detailed below. * No PE on CTA * Discussed case and plan of care with my supervising physician and band sawmill operator, Dr. Finnegan. Pulmonology to consult if worsening/patient requires BiPAP. * She will need a home O2 eval prior to discharge (2) Acute exacerbation of CHF (congestive heart failure): Code(s): I50.9 - Heart failure, unspecified Status: Acute Assessment and Plan: CT on presentation showed evidence of pulmonary edema and cardiomegaly. BNP 8000 * Echo reviewed which showed EF 20-25% with indeterminate diastolic function and elevated right atrial pressure * Continue Furosemide 40 mg p.o. BID * She has had symptomatic improvement with diuresis * Appreciate cardiology consultation * Started on spironolactone and Entresto. Entresto discontinued on 05/04/2021 due to hypotension. Spironolactone on hold, will resume for tomorrow and monitor blood pressure trends * Monitor intake and output. (3) Pneumonia: Qualifiers: Laterality: bilateral Lung location: lower lobe of lung Pneumonia type: due to unspecified organism Qualified Code(s): J18.9 - Pneumonia, unspecified organism Code(s): J18.9 - Pneumonia, unspecified organism Status: Acute Assessment and Plan: CXR and CTA show diffuse opacities consistent with pneumonia. * Secondary to influenza which explains bilateral pneumonia * Continue ceftriaxone and azithromycin for CAP coverage * Discussed case with band sawmill operator, Dr. Finnegan * Patient had positive home COVID test with negative PCR x2. Dexamethasone and baricitinib discontinued on 05/02/21 * Completed 5 doses of Remdesivir on 05/04/21. No evidence of toxicity. No issues with Remdesivr + Oseltamivir. Given her advanced age and increased O2 demand, felt prudent to complete Remdesivir therapy following pulmonology recommendations. (4) Influenza A: Code(s): J10.1 - Influenza due to other identified influenza virus with other respiratory manifestations Status: Acute Assessment and Plan: Positive influenza A on 05/01/21 * Continue tamiflu 30 mg BID (renal dosing) * Supportive care (5) Pleural effusion: Code(s): J90 - Pleural effusion, not elsewhere classified Status: Acute Assessment and Plan: Patient with moderate to large right, moderate left pleural effusion * Patient's daughter reports that 2 weeks ago when patient was feeling well she had a routine CXR that was ?clear? * Underwent thoracentesis on 05/01 which yielded 1 L yellow fluid * Gram stain negative. Preliminary cultures negative. No malignant cells on pathology * Pleural fluid studies consistent with transudative effusion, likely secondary to CHF (6) HTN (hypertension), malignant: Code(s): I10 - Essential (primary) hypertension Status: Chronic Assessment and Plan: Blood pressure is stable today. Last BP 107/49 * Continue carvedilol * Continue p.o. Lasix * Monitor blood pressure trends closely * Patient with hypotension on 05/04/21 with BP down to 80/40. Discussed with Cardiology, felt to be most likely due
--- NOTE | 2021-05-05 12:46 | PM.IMPN ---
Progress Note: A&P Assessment and Plan (1) Acute hypoxemic respiratory failure: Code(s): J96.01 - Acute respiratory failure with hypoxia Status: Acute Assessment and Plan: Presented with increased SOB. ABG demonstrated hypoxemia and O2 sats down to 86% on presentation Significantly improved. Initially required up to 50 L on Airvo, now on 2L per nasal cannula Likely multifactorial related to acute CHF exacerbation, influenza, pleural effusion.Plan as detailed below. No PE on CTA Discussed case and plan of care with my supervising physician and bulk driver, Dr. Finnegan. Pulmonology to consult if worsening/patient requires BiPAP. She will need a home O2 eval prior to discharge (2) Acute exacerbation of CHF (congestive heart failure): Code(s): I50.9 - Heart failure, unspecified Status: Acute Assessment and Plan: CT on presentation showed evidence of pulmonary edema and cardiomegaly. BNP 8000 Echo reviewed which showed EF 20-25% with indeterminate diastolic function and elevated right atrial pressure Continue Furosemide 40 mg p.o. BID She has had symptomatic improvement with diuresis Appreciate cardiology consultation Started on spironolactone and Entresto. Entresto discontinued on 05/04/2021 due to hypotension. Spironolactone on hold, will resume for tomorrow and monitor blood pressure trends Monitor intake and output. (3) Pneumonia: Qualifiers: Laterality: bilateral Lung location: lower lobe of lung Pneumonia type: due to unspecified organism Qualified Code(s): J18.9 - Pneumonia, unspecified organism Code(s): J18.9 - Pneumonia, unspecified organism Status: Acute Assessment and Plan: CXR and CTA show diffuse opacities consistent with pneumonia. Secondary to influenza which explains bilateral pneumonia Continue ceftriaxone and azithromycin for CAP coverage Discussed case with bulk driver, Dr. Finnegan Patient had positive home COVID test with negative PCR x2. Dexamethasone and baricitinib discontinued on 05/02/21 Completed 5 doses of Remdesivir on 05/04/21. No evidence of toxicity. No issues with Remdesivr + Oseltamivir. Given her advanced age and increased O2 demand, felt prudent to complete Remdesivir therapy following pulmonology recommendations. (4) Influenza A: Code(s): J10.1 - Influenza due to other identified influenza virus with other respiratory manifestations Status: Acute Assessment and Plan: Positive influenza A on 05/01/21 Continue tamiflu 30 mg BID (renal dosing) Supportive care (5) Pleural effusion: Code(s): J90 - Pleural effusion, not elsewhere classified Status: Acute Assessment and Plan: Patient with moderate to large right, moderate left pleural effusion Patient's daughter reports that 2 weeks ago when patient was feeling well she had a routine CXR that was ?clear? Underwent thoracentesis on 05/01 which yielded 1 L yellow fluid Gram stain negative. Preliminary cultures negative. No malignant cells on pathology Pleural fluid studies consistent with transudative effusion, likely secondary to CHF (6) HTN (hypertension), malignant: Code(s): I10 - Essential (primary) hypertension Status: Chronic Assessment and Plan: Blood pressure is stable today. Last BP 107/49 Continue carvedilol Continue p.o. Lasix Monitor blood pressure trends closely Patient with hypotension on 05/04/21 with BP down to 80/40. Discussed with Cardiology, felt to be most likely due to Entresto which was discontinued. Spironolactone held. Lasix held yesterday evening but resumed today. Blood pressure is tolerating. Last BP 107/49. Will plan to resume spironolactone for tomorrow. Monitor blood pressure trends closely. (7) Lactic acidosis: Code(s): E87.2 - Acidosis Status: Acute Assessment and Plan: Resolved. Lactic normal on presentation at 1.8 but was repeated with
[2021-05-06] VITALS (10 sets, daily range): BP systolic 99–144; BP diastolic 46–74; PULSE 67–94; RESP 16–18; TEMP 36–36.3; O2SAT 92–100
[2021-05-06] MEDS: LEVOTHYROXINE SODIUM 50 MCG TABLET PO (05:46)
[2021-05-06 06:27] LABS: Basophils Percent Auto 0.3 % (0.2-1.2); Eosinophils Absolute Auto 0.3 K/mm3 (0-0.3); Eosinophils Percent Auto 2.6 % (0-4.4); Hematocrit 44.1 % (37.0-47.0); Hemoglobin 14.4 g/dL (12.0-15.0); Immature Granulocyte Absolute 0.04 K/mm3 (0.00-0.031); Immature Granulocyte Percent A 0.4 % (0-0.5); Lymphocytes Percent Auto 23.4 % (18.3-44.2); Mean Corpuscular HGB Conc 32.7 g/dl (32-36); Mean Corpuscular Hemoglobin 31.6 pg (26-34); Mean Corpuscular Volume 96.9 fl (80-100); Mean Platelet Volume 10.2 fl (7.4-10.4); Monocytes Absolute Auto 1.1 K/mm3 (0.1-0.6); Monocytes Percent Auto 11.4 % (2.6-8.5); Neutrophils Absolute Auto 6.1 K/mm3 (1.3-6.7); Neutrophils Percent Auto 61.9 % (45.5-73.1); Platelet Count Result 221 k/mm3 (150-375); Red Blood Count 4.55 M/mm3 (4.2-5.4); White Blood Count 9.8 K/mm3 (4.5-10.0)
[2021-05-06 06:45] LABS: Alanine Aminotransferase 26 U/L (4-35); Aspartate Amino Transferase 32 U/L (14-36); Estimated CRCL calculation 41 ml/min; Estimated Glomerular Filt Rate > 60
[2021-05-06] MEDS: DIGOXIN TAB 125 MCG TABLET PO (09:04)
[2021-05-06] MEDS: POTASSIUM CHLORIDE 20 MEQ TABLET.ER PO ×2 (09:04→18:28)
[2021-05-06] MEDS: ENOXAPARIN 40 MG/0.4 ML SYRINGE SUB-Q (09:04)
[2021-05-06] MEDS: SPIRONOLACTONE 25 MG TABLET PO (09:05)
[2021-05-06] MEDS: FUROSEMIDE 40 MG TABLET PO ×2 (09:05→18:28)
[2021-05-06] MEDS: OSELTAMIVIR PHOSPHATE 30 MG CAPSULE PO ×2 (09:05→22:13)
--- NOTE | 2021-05-06 11:14 | P.PNIM_ITS ---
Progress Note: A&P Assessment and Plan (1) Acute hypoxemic respiratory failure: Code(s): J96.01 - Acute respiratory failure with hypoxia Status: Acute Assessment and Plan: Presented with increased SOB. ABG demonstrated hypoxemia and O2 sats down to 86% on presentation * Significantly improved. Initially required up to 50 L on Airvo, now on 2L per nasal cannula * Likely multifactorial related to acute CHF exacerbation, influenza, pleural effusion.Plan as detailed below. * No PE on CTA * Discussed case and plan of care with my supervising physician and science consultant, Dr. Finnegan. Pulmonology to consult if worsening/patient requires BiPAP. * Will get home O2 eval tomorrow. Can possibly discharge tomorrow. (2) Acute exacerbation of CHF (congestive heart failure): Code(s): I50.9 - Heart failure, unspecified Status: Acute Assessment and Plan: CT on presentation showed evidence of pulmonary edema and cardiomegaly. BNP 8000 * Echo reviewed which showed EF 20-25% with indeterminate diastolic function and elevated right atrial pressure * Continue Furosemide 40 mg p.o. BID * She has had symptomatic improvement with diuresis * Appreciate cardiology consultation * Patient was started on spironolactone and Entresto. * 05/04/2021: Entresto discontinued due to hypotension. * 05/06/21: Talked to cardiology about Entresto being discontinued and he recommended switching Coreg from CR 40 mg daily to 3.125 mg Q12h to give us more room with the BP, then restart Entresto 24/26mg Q12h. Monitor BP and If stable can be discharged home. Still concerns with hypotension, discuss with Cardiology again. * Monitor intake and output. (3) Pneumonia: Qualifiers: Laterality: bilateral Lung location: lower lobe of lung Pneumonia type: due to unspecified organism Qualified Code(s): J18.9 - Pneumonia, unspecified organism Code(s): J18.9 - Pneumonia, unspecified organism Status: Acute Assessment and Plan: CXR and CTA show diffuse opacities consistent with pneumonia. * Secondary to influenza which explains bilateral pneumonia * Continue #6/7 ceftriaxone and azithromycin for CAP coverage * Discussed case with science consultant, Dr. Finnegan * Patient had positive home COVID test with negative PCR x2. Dexamethasone and baricitinib discontinued on 05/02/21 * Completed 5 doses of Remdesivir on 05/04/21. No evidence of toxicity. No issues with Remdesivr + Oseltamivir. Given her advanced age and increased O2 demand, felt prudent to complete Remdesivir therapy following pulmonology recommendations. (4) Influenza A: Code(s): J10.1 - Influenza due to other identified influenza virus with other respiratory manifestations Status: Acute Assessment and Plan: Positive influenza A on 05/01/21 * Continue tamiflu 30 mg BID (renal dosing) last dose 05/06/21 PM * Supportive care (5) Pleural effusion: Code(s): J90 - Pleural effusion, not elsewhere classified Status: Acute Assessment and Plan: Patient with moderate to large right, moderate left pleural effusion * Patient's daughter reports that 2 weeks ago when patient was feeling well she had a routine CXR that was ?clear? * Underwent thoracentesis on 05/01 which yielded 1 L yellow fluid * Gram stain negative. Preliminary cultures negative. No malignant cells on pathology * Pleural fluid studies consistent with transudative effusion, likely secondary to CHF (6) HTN (hypertension), malignant: Code(s): I10 - Essential (primary) hypertension Status
--- NOTE | 2021-05-06 11:14 | PM.IMPN ---
Progress Note: A&P Assessment and Plan (1) Acute hypoxemic respiratory failure: Code(s): J96.01 - Acute respiratory failure with hypoxia Status: Acute Assessment and Plan: Presented with increased SOB. ABG demonstrated hypoxemia and O2 sats down to 86% on presentation Significantly improved. Initially required up to 50 L on Airvo, now on 2L per nasal cannula Likely multifactorial related to acute CHF exacerbation, influenza, pleural effusion.Plan as detailed below. No PE on CTA Discussed case and plan of care with my supervising physician and street light mechanic, Dr. Finnegan. Pulmonology to consult if worsening/patient requires BiPAP. Will get home O2 eval tomorrow. Can possibly discharge tomorrow. (2) Acute exacerbation of CHF (congestive heart failure): Code(s): I50.9 - Heart failure, unspecified Status: Acute Assessment and Plan: CT on presentation showed evidence of pulmonary edema and cardiomegaly. BNP 8000 Echo reviewed which showed EF 20-25% with indeterminate diastolic function and elevated right atrial pressure Continue Furosemide 40 mg p.o. BID She has had symptomatic improvement with diuresis Appreciate cardiology consultation Patient was started on spironolactone and Entresto. 05/04/2021: Entresto discontinued due to hypotension. 05/06/21: Talked to cardiology about Entresto being discontinued and he recommended switching Coreg from CR 40 mg daily to 3.125 mg Q12h to give us more room with the BP, then restart Entresto 24/26mg Q12h. Monitor BP and If stable can be discharged home. Still concerns with hypotension, discuss with Cardiology again. Monitor intake and output. (3) Pneumonia: Qualifiers: Laterality: bilateral Lung location: lower lobe of lung Pneumonia type: due to unspecified organism Qualified Code(s): J18.9 - Pneumonia, unspecified organism Code(s): J18.9 - Pneumonia, unspecified organism Status: Acute Assessment and Plan: CXR and CTA show diffuse opacities consistent with pneumonia. Secondary to influenza which explains bilateral pneumonia Continue #6/7 ceftriaxone and azithromycin for CAP coverage Discussed case with street light mechanic, Dr. Finnegan Patient had positive home COVID test with negative PCR x2. Dexamethasone and baricitinib discontinued on 05/02/21 Completed 5 doses of Remdesivir on 05/04/21. No evidence of toxicity. No issues with Remdesivr + Oseltamivir. Given her advanced age and increased O2 demand, felt prudent to complete Remdesivir therapy following pulmonology recommendations. (4) Influenza A: Code(s): J10.1 - Influenza due to other identified influenza virus with other respiratory manifestations Status: Acute Assessment and Plan: Positive influenza A on 05/01/21 Continue tamiflu 30 mg BID (renal dosing) last dose 05/06/21 PM Supportive care (5) Pleural effusion: Code(s): J90 - Pleural effusion, not elsewhere classified Status: Acute Assessment and Plan: Patient with moderate to large right, moderate left pleural effusion Patient's daughter reports that 2 weeks ago when patient was feeling well she had a routine CXR that was ?clear? Underwent thoracentesis on 05/01 which yielded 1 L yellow fluid Gram stain negative. Preliminary cultures negative. No malignant cells on pathology Pleural fluid studies consistent with transudative effusion, likely secondary to CHF (6) HTN (hypertension), malignant: Code(s): I10 - Essential (primary) hypertension Status: Chronic Assessment and Plan: Blood pressure is stable today. Last BP 107/49 Continue carvedilol Continue p.o. Lasix Monitor blood pressure trends closely BP soft this morning 103/50. She was given Digoxin, Spironolactone, lasix 40 mg, Coreg CR 40 mg daily. She needs to be on JULIAN/ARB/or Entresto. Talked to Dr. Fischer via phone and recommends D/c Coreg CR and switch to Coreg 3.125 mg Q12hrs
[2021-05-07] VITALS (8 sets, daily range): BP systolic 102–111; BP diastolic 52–81; PULSE 63–69; RESP 17–19; TEMP 36–36.4; O2SAT 92–100
[2021-05-07] MEDS: LEVOTHYROXINE SODIUM 50 MCG TABLET PO (06:02)
[2021-05-07 07:20] LABS: Basophils Absolute Auto 0.1 K/mm3 (0.0-0.1); Basophils Percent Auto 0.5 % (0.2-1.2); Eosinophils Absolute Auto 0.2 K/mm3 (0-0.3); Eosinophils Percent Auto 1.8 % (0-4.4); Hematocrit 42.2 % (37.0-47.0); Immature Granulocyte Absolute 0.03 K/mm3 (0.00-0.031); Immature Granulocyte Percent A 0.3 % (0-0.5); Lymphocytes Percent Auto 16.1 % (18.3-44.2); Mean Corpuscular HGB Conc 33.2 g/dl (32-36); Mean Corpuscular Hemoglobin 31.9 pg (26-34); Mean Corpuscular Volume 96.1 fl (80-100); Mean Platelet Volume 10.2 fl (7.4-10.4); Monocytes Absolute Auto 1.3 K/mm3 (0.1-0.6); Monocytes Percent Auto 12.2 % (2.6-8.5); Neutrophils Absolute Auto 7.3 K/mm3 (1.3-6.7); Neutrophils Percent Auto 69.1 % (45.5-73.1); Platelet Count Result 230 k/mm3 (150-375); Red Blood Count 4.39 M/mm3 (4.2-5.4); White Blood Count 10.6 K/mm3 (4.5-10.0)
[2021-05-07 07:42] LABS: Alanine Aminotransferase 24 U/L (4-35); Anion Gap 8 mmol/L (8-16); Aspartate Amino Transferase 31 U/L (14-36); Blood Urea Nitrogen 23 mg/dL (7-17); Calcium 9.1 mg/dL (8.4-10.2); Carbon Dioxide 30 mmol/L (22-30); Chloride 95 mmol/L (98-107); Estimated CRCL calculation 37 ml/min; Estimated Glomerular Filt Rate 59; Glucose 107 mg/dL (65-110); Magnesium 2.2 mg/dL (1.6-2.3); Potassium 4.1 mmol/L (3.4-5.0); Sodium 133 mmol/L (137-145)
[2021-05-07] MEDS: POTASSIUM CHLORIDE 20 MEQ TABLET.ER PO (08:39)
[2021-05-07] MEDS: FUROSEMIDE 40 MG TABLET PO (08:40)
[2021-05-07] MEDS: DIGOXIN TAB 125 MCG TABLET PO (08:40)
[2021-05-07] MEDS: SACUBITRIL/VALSARTAN 24-26 MG TABLET 1 TAB PO (08:40)
[2021-05-07] MEDS: carvediloL 3.125 MG TABLET PO (08:40)
[2021-05-07] MEDS: ENOXAPARIN 40 MG/0.4 ML SYRINGE SUB-Q (08:41)
[2021-05-07] MEDS: SPIRONOLACTONE 25 MG TABLET PO (08:41)
--- NOTE | 2021-05-07 10:50 | PCNWS ---
Weekly nutritional screen. Patient screened in for 7 day length of stay. Patient is tolerating current diet with adequate intake. No weight loss reported. No nutritional needs at this time.
--- NOTE | 2021-05-07 15:12 | PC.NURSE ---
Awaiting home o2 eval for discharge.
--- NOTE | 2021-05-07 15:49 | HOMEO2EVAL ---
Evaluation was performed at [facility] Home Oxygen Evaluation RC: Home Oxygen (O2) Evaluation Start: 05/07/21 13:24 Freq: ONCE Status: Active Protocol: RPE Activity Type Activity Date Activity User E-Sign Co-Sign Detail Recorded Client Recorded Date Recorded By Document 05/07/21 15:15 JELANI [email or web address] 05/07/21 15:49 JELANI Document 05/07/21 15:20 JELANI [email or web address] 05/07/21 15:49 JELANI Document 05/07/21 15:25 JELANI [id number] 05/07/21 15:49 JELANI 05/07/21 05/07/21 05/07/21 15:15 15:20 15:25 Home O2 Evaluation Test Phase Resting Exercise Resting Oxygen Delivery Room Air Room Air Room Air Pulse Oximetry (90-100 %) 97 92 94 Home Oxygen Evaluation Comments NO HOME O2 NEEDED, UP TO DOOR AND BACK TO BED X 2 Treatment Charges O2 Evaluation - Inpatient
--- NOTE | 2021-05-07 15:49 | PCRCNOTE ---
HOME O2 EVAL COMPLETED, NO HOME O2 NEEDED, PA NOTIFIED
--- NOTE | 2021-05-07 16:19 | WPDCDIQUERY2 ---
CDI Query Clarification Request Patient presented to the ED on 04/30/21 with complaints of weakness and SOB. Patient reported she tested positive for COVID on a home test on 04/25/21. Patient had two negative PCR tests on 04/30 and 05/01, patient tested positive for influenza A on 05/01/21. Dexamethasone and Barictinib discontinued due to negative PCR tests. Given her advanced age and increased O2 demand, will compete treatment with Remdesivir. Please clarify if COVID-19 was present or ruled out if known.
--- NOTE | 2021-05-07 16:21 | PC.NURSE ---
Pt passes home o2 evaluation, discharge instruction explained to pt in person and daughter via telephone, verbalized understanding. Awaiting machine operator picker from daughter for discharge home.
--- NOTE | 2021-05-07 17:16 | P.DS_ITS ---
DS: Admitting Diagnosis Discharge Date 05/07/21 Admitting Diagnosis Acute respiratory failure DS: Discharge Diagnosis Discharge Diagnosis (1) Acute hypoxemic respiratory failure: Code(s): J96.01 - Acute respiratory failure with hypoxia Status: Acute Assessment and Plan: Presented with increased SOB. ABG demonstrated hypoxemia and O2 sats down to 86% on presentation * She had significant symptomatic improvement. Initially required up to 50 L on Airvo, was able to be weaned to room air * Likely multifactorial related to acute CHF exacerbation, influenza, pleural effusion.Plan as detailed below. * No PE on CTA * Discussed case and plan of care with my supervising physician and pulmo nologist, Dr. Finnegan. * Home O2 eval performed on 05/07/2021 with no oxygen requirements at rest or with activity (2) Acute exacerbation of CHF (congestive heart failure): Code(s): I50.9 - Heart failure, unspecified Status: Acute Assessment and Plan: CT on presentation showed evidence of pulmonary edema and cardiomegaly. BNP 8000 * Echo reviewed which showed EF 20-25% with indeterminate diastolic function and elevated right atrial pressure * Seen in consultation by Cardiology * She was diuresed with IV furosemide with symptomatic improvement. Will continue p.o. furosemide 40 mg b.i.d. Started on daily potassium supplement with loop diuretic. Will repeat potassium level in 1 week to ensure remaining stable, especially while on spironolactone to ensure not overcorrected. * Started on spironolactone 25 mg daily * Started on Entresto. 05/04/2021 Entresto was discontinued due to hypotension. Repeat discussion with Cardiology 05/06/2021 recommended to resume Entresto and decreased carvedilol from CR 40 mg daily to 3.125 mg b.i.d. to allow for improvement in BP. Her blood pressure tolerated this new regimen. She was instructed to monitor her blood pressures at home several times per week and record for review by her paraplanner (Dr. Payne), whom she should follow up within 1 week * CHF education provided (3) Pneumonia: Qualifiers: Laterality: bilateral Lung location: lower lobe of lung Pneumonia type: due to unspecified organism Qualified Code(s): J18.9 - Pneumonia, unspecified organism Code(s): J18.9 - Pneumonia, unspecified organism Status: Acute Assessment and Plan: CXR and CTA show diffuse opacities consistent with pneumonia. * Secondary to influenza which explains bilateral pneumonia * Completed 7 days of IV ceftriaxone and azithromycin for CAP coverage * Patient had positive home COVID test with negative PCR x2. Dexamethasone and baricitinib discontinued on 05/02/21 * Completed 5 doses of Remdesivir on 05/04/21. No evidence of toxicity. No issues with Remdesivr + Oseltamivir. Given her advanced age and increased O2 demand, felt prudent to complete Remdesivir therapy based on pulmonology recomm endations. (4) Influenza A: Code(s): J10.1 - Influenza due to other identified influenza virus with other respiratory manifestations Status: Acute Assessment and Plan: Positive influenza A on 05/01/21 * Completed 5 days of PO tamiflu * Supportive care provided (5) Pleural effusion: Code(s): J90 - Pleural effusion, not elsewhere classified Status: Acute Assessment and Plan: Patient with moderate to large right, moderate left pleural effusion * Patient's daughter reports that 2 weeks ago when patient was feeling well she had a routine CXR that was ?clear? * Underwent thoracentesis
--- NOTE | 2021-05-07 17:16 | PM.DS ---
DS: Admitting Diagnosis Discharge Date 05/07/21 Admitting Diagnosis Acute respiratory failure DS: Discharge Diagnosis Discharge Diagnosis (1) Acute hypoxemic respiratory failure: Code(s): J96.01 - Acute respiratory failure with hypoxia Status: Acute Assessment and Plan: Presented with increased SOB. ABG demonstrated hypoxemia and O2 sats down to 86% on presentation She had significant symptomatic improvement. Initially required up to 50 L on Airvo, was able to be weaned to room air Likely multifactorial related to acute CHF exacerbation, influenza, pleural effusion.Plan as detailed below. No PE on CTA Discussed case and plan of care with my supervising physician and guest services associate, Dr. Finnegan. Home O2 eval performed on 05/07/2021 with no oxygen requirements at rest or with activity (2) Acute exacerbation of CHF (congestive heart failure): Code(s): I50.9 - Heart failure, unspecified Status: Acute Assessment and Plan: CT on presentation showed evidence of pulmonary edema and cardiomegaly. BNP 8000 Echo reviewed which showed EF 20-25% with indeterminate diastolic function and elevated right atrial pressure Seen in consultation by Cardiology She was diuresed with IV furosemide with symptomatic improvement. Will continue p.o. furosemide 40 mg b.i.d. Started on daily potassium supplement with loop diuretic. Will repeat potassium level in 1 week to ensure remaining stable, especially while on spironolactone to ensure not overcorrected. Started on spironolactone 25 mg daily Started on Entresto. 05/04/2021 Entresto was discontinued due to hypotension. Repeat discussion with Cardiology 05/06/2021 recommended to resume Entresto and decreased carvedilol from CR 40 mg daily to 3.125 mg b.i.d. to allow for improvement in BP. Her blood pressure tolerated this new regimen. She was instructed to monitor her blood pressures at home several times per week and record for review by her home care giver (Dr. Payne), whom she should follow up within 1 week CHF education provided (3) Pneumonia: Qualifiers: Laterality: bilateral Lung location: lower lobe of lung Pneumonia type: due to unspecified organism Qualified Code(s): J18.9 - Pneumonia, unspecified organism Code(s): J18.9 - Pneumonia, unspecified organism Status: Acute Assessment and Plan: CXR and CTA show diffuse opacities consistent with pneumonia. Secondary to influenza which explains bilateral pneumonia Completed 7 days of IV ceftriaxone and azithromycin for CAP coverage Patient had positive home COVID test with negative PCR x2. Dexamethasone and baricitinib discontinued on 05/02/21 Completed 5 doses of Remdesivir on 05/04/21. No evidence of toxicity. No issues with Remdesivr + Oseltamivir. Given her advanced age and increased O2 demand, felt prudent to complete Remdesivir therapy based on pulmonology recommendations. (4) Influenza A: Code(s): J10.1 - Influenza due to other identified influenza virus with other respiratory manifestations Status: Acute Assessment and Plan: Positive influenza A on 05/01/21 Completed 5 days of PO tamiflu Supportive care provided (5) Pleural effusion: Code(s): J90 - Pleural effusion, not elsewhere classified Status: Acute Assessment and Plan: Patient with moderate to large right, moderate left pleural effusion Patient's daughter reports that 2 weeks ago when patient was feeling well she had a routine CXR that was ?clear? Underwent thoracentesis on 05/01 which yielded 1 L yellow fluid Gram stain negative. Preliminary cultures negative. No malignant cells on pathology. Monitor final results Pleural fluid studies consistent with transudative effusion, likely secondary to CHF (6) HTN (hypertension), malignant: Code(s): I10 - Essential (primary) hypertension Status: Chronic Assessment and Plan: Blood pressure stable.
== END 2021-05-07 16:40 | disposition home or self-care (01) | DRG 193 ==
LOC: ANHED 13:29 → ANH3MEDSUR 17:02 → ANHIMU 05-01 07:15 → ANH3MEDSUR 05-01 10:29 → ANHIMU 05-01 10:29 → ANH3MEDSUR 05-03 17:47
PROVIDERS: Nurse Practitioner; Physician Assistant; Admitting Provider Internal Medicine; Emergency Provider Family Medicine; PCP Internal Medicine; Visit Provider Physician Assistant
DX: J11.00 Influenza due to unidentified influenza virus with unspecified type of pneumonia (principal); J96.01 Acute respiratory failure with hypoxia; J90 Pleural effusion, not elsewhere classified; E87.2 Acidosis; J44.0 Chronic obstructive pulmonary disease with (acute) lower respiratory infection; I42.8 Other cardiomyopathies; I11.0 Hypertensive heart disease with heart failure; Z20.822 Contact with and (suspected) exposure to COVID-19; I50.9 Heart failure, unspecified; Z95.810 Presence of automatic (implantable) cardiac defibrillator; Z90.710 Acquired absence of both cervix and uterus
CPT/HCPCS: 32555; 36415; 36600; 51701; 71045; 71275; 80048; 80053; 80162; 81001; 82040; 82042; 82150; 82247; 82375; 82465; 82565; 82728; 82805; 82945; 82947; 83050; 83605; 83615; 83690; 83735; 83880; 83986; 84155; 84157; 84439; 84443; 84450; 84460; 84478; 84480; 85025; 85610; 85730; 86140; 87015; 87070; 87075; 87102; 87116; 87205; 87206; 87804; 88104; 88108; 88305; 89051; 93005; 93306; 94618; 96365; 96375; 97110; 97116; 97161; 97165; 97535; 99291; A9270; C9803; G0378; J0456; J0696; J1100; J1650; J1940; J7050; Q9967; U0003; U0005